=== PATIENT | male | born 1945 | race Caucasian/White ===

== ENCOUNTER 2017-10-18 10:14 | Emergency (ER) | payer MEDICARE ==
[~2017-10-18 10:14] MED LIST: ACE325 PO; ALL100 PO; ALLO100T70 PO; AMOX-559 PO; ASP325 PO; ASPI-1471 PO; ASPI-715 PO; ASPI81TA15 PO; ATOR10TA65 PO; AZIT-9 PO; BACDS PO; CALC-703 PO; CEP500 PO; CEPH-13 PO; CIP500 PO; CIPR-212 PO; DOC100 PO; DUONEB INH; FES4PT PO; IBU600 PO; INDO-1 PO; INDO50CA92 PO; LEV500 PO; LOR5 PO; MELO-207 PO; MULT-1335 PO; MULT1TAB64 PO; MUPI15CR10 TP; NEOM14OI TP; NEOPT TOP; NIT100 PO; OXYB10TA21 PO; OXYC-865 PO; OXYC1TAB54 PO; PAN40 PO; PER PO; PHENA200 PO; PRED-314 PO; SULF-198 PO; TAM4 PO; TIZA-1 PO; TOLT4CAP13 PO; UNRESPONSIVE; URI PO; VITA-324 PO; ZOLP-350 PO; [UNRECOGNIZED DRUG - CODE] PO
--- NOTE | 2017-10-18 10:29 | ER Report ---
History and Physical Time Seen By MD: 10:20 Hx. of Stated Complaint: GOAT STOMPED ON RIGHT FOOT ON FRIDAY OR FRIDAY HPI/ROS Goat steppef on his right second toe. Now with pain and blood under toenail. ABle to ambulate. No pain in foot. Allergies: Coded Allergies: levofloxacin (Unverified Allergy, Severe, JOINT PAINS, 10/18/17) hyoscyamine (Verified Allergy, Intermediate, 10/18/17) procaine (Verified Allergy, Intermediate, 10/18/17) Home Meds Reported Medications Aspirin (ASPIR 81) 81 Mg Tablet.dr, 1 TAB PO QDAY, TAB 04/04/14 Reviewed Nurses Notes: Yes Old Medical Records Reviewed: Yes Hx Smoking: No Smoking Status: Never Smoker Hx Substance Use Disorder: No Hx Alcohol Use: No Constitutional Physical Exam GE: Alert and oriented HEENT: PERRL, EOMI CV: RRR no m/r/g Lungs: cta b/l EX: subungual hematoma under second toenail of right foot. Medical Decision Making EKG/Imaging Imaging xray: no fractures/dislocations of right foot/toes ED Course/Re-evaluation ED Course Used Bovie pen to place hole in toenail of second toe of right foot. Blood expelled. Pain improved. No fractures or dislocations of foot/toe Decision to Disposition Date: Oct 18, 2017 Decision to Disposition Time: 11:45 Depart Departure Latest Vital Signs Impression: Primary Impression: Subungual hematoma of second toe of right foot Condition: Improved Patient Instructions: Subungual Hematoma (ED) Problem Qualifiers Primary Impression: Subungual hematoma of second toe of right foot Encounter type: initial encounter Qualified Codes: S90.221A - Contusion of right lesser toe(s) with damage to nail, initial encounter VISHNU LOUIS MD Oct 18, 2017 10:29
--- NOTE | 2017-10-18 10:53 | RADIOLOGY IMAGING REPORT ---
FACILITY: [facility] - [place] PATIENT NAME: Scar Alexandra : 1945 MR: [id number] V: [id number] EXAM DATE: ORDERING PHYSICIAN: VISHNU LOUIS TECHNOLOGIST: Location: [facility] - [place] Patient: Scar Alexandra : 1945 Visit/Account:[id number] Date of Sevice: 10/18/2017 FOOT 2 VIEW RIGHT Indication: Right foot pain near the first toe after goat stepped on foot. Comparison: None Available Findings: AP and lateral views of the right foot were obtained. No acute fracture or dislocation. No bony lesions or past abnormality. There are some prominent subch ondral cystic changes along the distal medial first metatarsal without erosions or periosteal abnorma lity. No significant degenerative changes are otherwise seen. There is mild hallux valgus deformity p resent. Soft tissues show mild edema without radiopaque foreign body. IMPRESSION: 1.No acute osseous abnormality of the right foot 2. Prominent subchondral cystic changes in the first metatarsal head this could be secondary to early changes of osteoarthritis or gout. 3. Mild hallux valgus deformity. Report Dictated By: Zackery Troy at 10/18/2017 10:44 AM Report E-Signed By: Zackery Troy at 10/18/2017 10:48 AM WSN:[id number]
[2017-10-18 11:48] VITALS: BP 127/80
== END 2017-10-18 11:52 | disposition home or self-care (01) ==
LOC: ER 10:20
DX: S90.221A Contusion of right lesser toe(s) with damage to nail, initial encounter (principal)
CPT/HCPCS: 99282

== ENCOUNTER 2018-01-30 15:22 | Observation (INO) | payer MEDICARE ==
[~2018-01-30] VITALS: Ht 167.6 cm; Wt 81.8 kg
[2018-01-30] VITALS (7 sets, daily range): BP systolic 132–150; BP diastolic 78–100
[~2018-01-30 15:22] MED LIST changes: +INDO-21 PO
[2018-01-30] MEDS ORDERED: IBUP-136 PO (15:38)
[2018-01-30] MEDS ORDERED: LIDOCAINE 2% 200MG/10ML UROJET ONE (15:55)
--- NOTE | 2018-01-30 15:56 | ER Report ---
History and Physical Time Seen By MD: 15:40 Hx. of Stated Complaint: DIFFICULTY URINATING SINCE 0400 TODAY. HPI/ROS CHIEF COMPLAINT: urinary retention HISTORY OF PRESENT ILLNESS: Pt has solitary R kidney since age 11, complains of urinary retention since 4am, has not had this in years, since urethral procedure 7-8 yrs ago. Notes dysuria when he urinates today, abd pain L > R, lightheaded, nausea, sensation of fever. No change in color/odor. No bloodyblack stool. Had not had increased urination recently. No prostate problems that he knows about. REVIEW OF SYSTEMS: Constitutional: chills today Eyes: No discharge. ENT: No sore throat. Cardiovascular: No chest pain, no palpitations. Respiratory: No cough, no shortness of breath. Gastrointestinal: abd pain suprapubic and left Genitourinary: as above Musculoskeletal: No back pain. Skin: No rashes. Neurological: No headache. Remainder of the 14 system rev: Yes Allergies: Coded Allergies: levofloxacin (Unverified Allergy, Severe, JOINT PAINS, 01/30/18) hyoscyamine (Verified Allergy, Intermediate, 01/30/18) procaine (Verified Allergy, Intermediate, 01/30/18) Home Meds Reported Medications Ibuprofen (IBUPROFEN) 200 Mg Capsule, 2 CAP PO HS, CAPSULE 01/30/18 Aspirin (ASPIR 81) 81 Mg Tablet.dr, 1 TAB PO QDAY, TAB 04/04/14 Hx Smoking: No Smoking Status: Never Smoker Hx Substance Use Disorder: No Hx Alcohol Use: No Constitutional Vital Sign - Last 24 Hours 01/30/18 01/30/18 01/30/18 01/30/18 15:27 15:31 15:58 16:00 Temp 98.3 Pulse 107 Resp 16 B/P (MAP) 151/105 151/105 (120) 152/86 (108) 156/99 (118) Pulse Ox 97 95 O2 Delivery Room Air 01/30/18 01/30/18 16:15 16:30 Pulse 83 100 B/P (MAP) 164/117 (133) Pulse Ox 97 93 Physical Exam General Appearance: [The patient is alert, has no immediate need for airway protection and no signs of toxicity.] Eyes: Pupils equal and round no pallor or injection. ENT, Mouth: Mucous membranes are moist. Respiratory: There are no retractions, lungs are clear to auscultation. Cardiovascular: Regular rate and rhythm. Gastrointestinal: Abdomen mild suprapubic distension, llq, l lateral ttp Neurological: alert, oriented, nad Skin: Warm and dry, no rashes. Musculoskeletal: Neck is supple non tender. bilat le edema, l slightly greater than right, no ttp Rectal - significant prostate hypertrophy, no nodules palpated. Discomfort throughout prostate, no fluctuance DIFFERENTIAL DIAGNOSIS: After history and physical exam differential diagnosis was considered for urinary retention, prostate hypertrophy/mass, uti/pyelo, renal failure, vte, or other emergent etiology Medical Decision Making Data Points Result Diagram: 01/30/18 1615 01/30/18 1615 Laboratory Hematology Test 01/30/18 16:15 Red Blood Count 5.33 M/uL (4.00-5.60) Mean Corpuscular Volume 83.7 fL (80.0-96.0) Mean Corpuscular Hemoglobin 29.4 pg (26.0-33.0) Mean Corpuscular Hemoglobin Concent 35.1 g/dL (32.0-36.0) Red Cell Distribution Width 12.9 % (11.5-14.5) Mean Platelet Volume 8.2 fL (7.2-11.1) Neutrophils (%) (Auto) 73.6 % (39.4-72.5) Lymphocytes (%) (Auto) 18.8 % (17.6-49.6) Monocytes (%) (Auto) 6.6 % (4.1-12.4) Eosinophils (%) (Auto) 0.4 % (0.4-6.7) Basophils (%) (Auto) 0.6 % (0.3-1.4) Nucleated RBC Relative Count (auto) 0.0 /100WBC Neutrophils # (Auto) 8.3 K/uL (2.0-7.4) Lymphocytes # (Auto) 2.1 K/uL (1.3-3.6) Monocytes # (Auto) 0.7 K/uL (0.3-1.0) Eosinophils # (Auto) 0.0 K/uL (0.0-0.5) Basophils # (Auto) 0.1 K/uL (0.0-0.1) Nucleated RBC Absolute Count (auto) 0.00 K/uL Sodium Level 143 mmol/L (137-145) Potassium Level 4.0 mmol/L (3.5-5.0) Chloride Level 107 mmol/L (98-107) Carbon Dioxide Level 21 mmol/L (22-30) Blood Urea Nitrogen 17 mg/dl (9-21) Creatinine 1.40 mg/dl (0.66-1.25) Glomerular Filtration Rate Calc 50.1 Random Glucose 91 mg/dl (75-110) Calcium Level 10.0 mg/dl (8.4-10.2) Total Bilirubin 1.0 mg/dl (0.2-1.3) Aspartate Amino Transf (AST/SGOT) 33 U/L (0-35) Alanine Aminotransferase (ALT/SGPT) 24 U/L (0-56) Alkaline Phosphatase 90 U/L (0-126) Total Protein 8.2 g/dl (6.3-8.2) Albumin 4.6 g/dl (3.5-5.0) Chemistry Test 01/30/18 16:15 White Blood Count 11.3 k/uL (4.5-11.0) Red Blood Count 5.33 M/uL (4.00-5.60) Hemoglobin 15.7 g/dL (14.0-18.0) Hematocrit 44.6 % (42.0-52.0) Mean Corpuscular Volume 83.7 fL (80.0-96.0) Mean Corpuscular Hemoglobin 29.4 pg (26.0-33.0) Mean Corpuscular Hemoglobin Concent 35.1 g/dL (32.0-36.0) Red Cell Distribution Width 12.9 % (11.5-14.5) Platelet Count 305 K/uL (150-450) Mean Platelet Volume 8.2 fL (7.2-11.1) Neutrophils (%) (Auto) 73.6 % (39.4-72.5) Lymphocytes (%) (Auto) 18.8 % (17.6-49.6) Monocytes (%) (Auto) 6.6 % (4.1-12.4) Eosinophils (%) (Auto) 0.4 % (0.4-6.7) Basophils (%) (Auto) 0.6 % (0.3-1.4) Nucleated RBC Relative Count (auto) 0.0 /100WBC Neutrophils # (Auto) 8.3 K/uL (2.0-7.4) Lymphocytes # (Auto) 2.1 K/uL (1.3-3.6) Monocytes # (Auto) 0.7 K/uL (0.3-1.0) Eosinophils # (Auto) 0.0 K/uL (0.0-0.5) Basophils # (Auto) 0.1 K/uL (0.0-0.1) Nucleated RBC Absolute Count (auto) 0.00 K/uL Glomerular Filtration Rate Calc 50.1 Calcium Level 10.0 mg/dl (8.4-10.2) Total Bilirubin 1.0 mg/dl (0.2-1.3) Aspartate Amino Transf (AST/SGOT) 33 U/L (0-35) Alanine Aminotransferase (ALT/SGPT) 24 U/L (0-56) Alkaline Phosphatase 90 U/L (0-126) Total Protein 8.2 g/dl (6.3-8.2) Albumin 4.6 g/dl (3.5-5.0) ED Course/Re-evaluation ED Course Pt presents with acute urinary retention; eval to r/o matthias; exam c/w sig prostate hypertrophy; unable to pass sierra or coudet; valium administrated and will attempt coudet again Unable to pass coudet; I consulted urology; Dr. Kruger present and attempts at bedside. Unable to pass coudet; will admit and take to OR.. Decision to Disposition Date: Jan 30, 2018 Decision to Disposition Time: 18:02 Depart Departure Latest Vital Signs Vital Signs Date Time Temp Pulse Resp B/P (MAP) Pulse Ox O2 Delivery O2 Flow Rate FiO2 01/30/18 16:30 100 164/117 (133) 93 01/30/18 15:27 98.3 16 Room Air Impression: Primary Impression: Urinary obstruction Additional Impression: Prostate hypertrophy Problem Qualifiers CHUY LOUIS MD Jan 30, 2018 15:56
[2018-01-30] MEDS ORDERED: DIAZEPAM 50 MG/10 ML MDV IVP ONE ×2 (16:10→17:35)
[2018-01-30 16:32] LABS: PLATELET COUNT, AUTOMATED 305 K/uL (150-450)
[2018-01-30] MEDS ORDERED: GENTAMICIN/NS 80 MG/100 ML PB 100 ML IVPB ONE (18:05)
[2018-01-30] MEDS ORDERED: cefTRIAXone(*) 2 GM VIAL 2 GM in NS(*) 0.9% 100 ML ADDVANT BAG 100 ML IVPB ONE (18:05)
[2018-01-30] MEDS ORDERED: FAMOTIDINE(*) 20MG/50ML PREMIX 50 ML IVPB ONE (18:05)
[2018-01-30] MEDS ORDERED: LR(*) 1000 ML BAG 1,000 ML VA ONE (18:15)
--- NOTE | 2018-01-30 18:27 | EKG ---
FACILITY: [facility] PATIENT NAME: NATALY HANLEY : [id number] MR: [id number] V: [id number] EXAM DATE: ORDERING PHYSICIAN: LUKAS WALTERS TECHNOLOGIST: Test Reason : Blood Pressure : / mmHG Vent. Rate : 071 BPM Atrial Rate : 071 BPM P-R Int : 166 ms QRS Dur : 084 ms QT Int : 396 ms P-R-T Axes : 045 018 026 degrees QTc Int : 430 ms Normal sinus rhythm with sinus arrhythmia Normal ECG When compared with ECG of 16-JAN-2016 10:47, No significant change was found Confirmed by Dennys Dumont ([id number]) on 01/30/2018 10:48:47 PM Referred By: Confirmed By:Dennys Treadwell
[2018-01-30] MEDS ORDERED: MIDAZOLAM 2 MG/2 ML VIAL ONE (18:36)
[2018-01-30] MEDS ORDERED: HYDROCORTISONE 1% CR 28.35 GM TP ONE (19:07)
[2018-01-30] MEDS ORDERED: BELLADONNA ALK/OPIUM 60MG SUPP PR PRN (20:10)
[2018-01-30] MEDS ORDERED: LR(*) 1000 ML BAG 1,000 ML IV PRN (20:10)
[2018-01-30] MEDS ORDERED: NALOXONE HCL 0.4 MG/ML VIAL IVP PRN (20:10)
[2018-01-30] MEDS ORDERED: ONDANSETRON 4 MG/2 ML VIAL IVP PRN (20:10)
[2018-01-30] MEDS ORDERED: GLYCOPYRROLATE 0.2MG/ML 1 ML INJ IVP PRN (20:10)
[2018-01-30] MEDS ORDERED: PROPANTHELINE BROMIDE 15MG TAB PO PRN (20:10)
[2018-01-30] MEDS ORDERED: ZOLPIDEM TARTRATE 5 MG TAB PO PRN (20:10)
[2018-01-30] MEDS ORDERED: FLUSH 10 ML SYR IVP PRN (20:10)
[2018-01-30] MEDS ORDERED: HYDROmorphone PCA 6 MG/30 ML IV PRN (20:10)
[2018-01-30] MEDS ORDERED: GENTAMICIN(*) 80 MG/2 ML VIAL 160 MG in NS(*) 0.9% 100 ML BAG 100 ML IVPB ONE (20:30)
[2018-01-30] MEDS ORDERED: NORMOSOL R SOLN(*) 1000 ML BAG 1,000 ML IV ONE (20:55)
[2018-01-30] MEDS: BENZALKONIUM CL 1:750 TOP SOLN TP SCH (21:00)
[2018-01-30] MEDS: NEOMYCIN/POLYMYX/BACITR OINT 1 PACKET TP SCH (22:08)
[2018-01-30] MEDS: FAMOTIDINE 20 MG TAB PO SCH (22:08)
[2018-01-30] MEDS: DOCUSATE SODIUM 100 MG CAP PO SCH (22:08)
[2018-01-31] VITALS (9 sets, daily range): BP systolic 118–160; BP diastolic 71–90; Ht 167.6 cm; Wt 81.8 kg
[2018-01-31] MEDS ORDERED: GENTAMICIN/NS 80 MG/100 ML PB 100 ML IVPB SCH (07:30)
[2018-01-31] MEDS: BENZALKONIUM CL 1:750 TOP SOLN TP SCH (08:16)
[2018-01-31] MEDS: FAMOTIDINE 20 MG TAB PO SCH (08:16)
[2018-01-31] MEDS: NEOMYCIN/POLYMYX/BACITR OINT 1 PACKET TP SCH (08:16)
[2018-01-31] MEDS: DOCUSATE SODIUM 100 MG CAP PO SCH (08:16)
[2018-01-31] MEDS ORDERED: ACET-3017 PO (11:05)
[2018-01-31] MEDS ORDERED: FAMO20TA28 PO (11:06)
[2018-01-31] MEDS ORDERED: CIPR-214 PO (11:06)
--- NOTE | 2018-01-31 13:10 | CONSULTATION ---
EVENT DATE: January 30, 2018 ATTENDING PHYSICIAN Ranjeet Fuentes M.D./Emergency Room CONSULTING PHYSICIAN Scotty Kruger M.D. REASON FOR CONSULTATION This is a 72-year-old white male whom I was asked to see in the emergency room emergently with a complaint of painful urination with urinary retention. Dr. Fuentes contacted me to consult for cath replacement. Dr. Fuentes tried his means of catheterization but was unsuccessful. Historically, the patient has had two procedures on the urethra for urethral strictures. The patient is status postop urethroplasty with a buccal graft by Dr. Delaney approximately three years ago. The patient has done relatively well since that time. However, over the past three weeks the patient has noted painful difficult dribbling urination. The patient comes in with inability to urinate except for a few drops intermittently with associated severe bladder pain and spasms most likely. No history of chills or fever. White count is 11.3. After consulting with Dr. Fuentes, he thought he was probably in the prostatic urethra. Considering that information, I thought attempted catheterization in the emergency room was reasonable. At no time did patient have any bleeding per urethra from the repeated instrumentation in the emergency room and by me. An attempt to place a coude tipped catheter, it was my clinical impression that he had a good prostatic urethra and would not fall into the bladder. The patient was so advised and I discontinued the procedure. It was my clinical opinion that the cath had folded up in the urethra. The patient was attempted to urinate by almost jumping out of bed with severe pain and dribbling with urination into a urinal. At one room visit, the patient appeared to be almost passing out from the pain and the small amount of Valium that he had received IV. The patient was repositioned in bed and stabilized satisfactorily. Thus, the hospital nursing electronics production supervisor was contacted. She was on the phone. I waited approximately ten minutes without interruption and then requested that I speak to her and put the phone on hold. I requested on-call crew to be contacted for further evaluation and therapy of Mr. Byrd' inability to urinate satisfactorily with urinary retention. Bladder scan showed 500+ mL urine in the bladder. The patient was agreeable to further evaluation and therapy under anesthesia. This will be accomplished fairly shortly. Thank you for letting me share in the care of your patient. SARBJIT
--- NOTE | 2018-01-31 13:49 | OPERATIVE REPORT 1 ---
EVENT DATE: January 30, 2018 SURGEON: Scotty Kruger MD ANESTHESIOLOGIST: Case Kaufman MD ANESTHESIA: Subarachnoid block. PREOPERATIVE DIAGNOSES 1. Painful urination. 2. Urinary retention. POSTOPERATIVE DIAGNOSES 1. Painful urination. 2. Urinary retention. PROCEDURES PERFORMED 1. Cystourethroscopy. 2. 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 3. Placement of urethral Mc. DESCRIPTION OF PROCEDURE Under subarachnoid block anesthesia, patient was prepped and draped in the extended lithotomy position. The 17 panendoscope admitted through the urethra down to the very narrow severe stricture in the proximal bulbous urethra. The stricture was pinpoint. Pictures were obtained. Filiform passed easily through the pinpoint opening and was dilated from 16- to 20-Malay with relative ease. Following the dilation with filiforms and followers, cystourethroscopy was performed. The urethra was normal down to the proximal bulbous urethral stricture. The stricture was wide open at that point, showed minimal tearing of the tissue and bleeding. The 17 panendoscope admitted easily through the stricture approximately 1/2 inch long. Prostate showed trilobar hyperplasia with obstruction, approximately 30 gram prostate gland with a medium bar. Bladder showed 4+ trabeculation. Bladder was drained. Approximately 700 mL was drained. Urine was relatively clear. There was a small amount of whitish sediment at conclusion of the drainage. A #16 coude-tipped catheter passed easily into the bladder and was put to gravity drainage. Hydrocortisone cream was placed into the urethra part before catheter placement. Patient tolerated the procedure satisfactorily and returned to the recovery room in satisfactory condition. This is a 72-year-old white male complaining of severe painful urination the day of admission. Patient historically had had approximately a three-week history of intermittent relatively painful urination with associated dribbling. Patient is status post op buccal urethroplasty by Dr. Del Rosario a few years ago. Patient had several "Roto Rooter" procedures prior to the urethroplasty. Patient did relatively well following the urethroplasty and has not required any close followup for two to three years. Patient stated he was voiding to his satisfaction prior to the onset of his difficulties approximately three weeks ago. 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 Patient has a solitary kidney that is healthy and working normally. Patient will be admitted overnight for observation secondary to multiple manipulations, antibiotic therapy, and awaiting results on the culture. Plan probable discharge in the a.m. He is to force fluids 2 L per day. Activities are as tolerated. He is to remove his urethral Mc as instructed. We filled his leg bag prior to discharge and sent him home with a bedside drainage bag. He is to follow up in the office on Friday. Patient will probably follow up with Dr. Del Rosario following that visit. Patient will be discharged home on Cipro, Pepcid, and Tylenol #3 therapy. MTDD
[2018-01-31] MEDS ORDERED: cefTRIAXone(*) 1 GM VIAL 1 GM in NS(*) 0.9% 100 ML ADDVANT BAG 100 ML IVP SCH (18:00)
== END 2018-01-31 11:14 | disposition home or self-care (01) ==
LOC: ER 15:50 → OR 17:59 → MED 21:40
DX: N13.9 Obstructive and reflux uropathy, unspecified (principal); N40.0 Benign prostatic hyperplasia without lower urinary tract symptoms; Z86.73 Personal history of transient ischemic attack (TIA), and cerebral infarction without residual deficits
CPT/HCPCS: 36415; 52281; 81001; 85025; 87088; 93005; 96365; 96375; 96376; 99284; A9270; G0378; J0696; J1580; J2250; J3360; J3490; J7050; J7120; 82040; 82247; 82310; 82374; 82435; 82565; 82947; 84075; 84132; 84155; 84295; 84450; 84460; 84520

== ENCOUNTER 2018-05-30 09:23 | Emergency (ER) | payer MEDICARE ==
[2018-01-31 11:17] VITALS: Wt 83.9 kg
[~2018-05-30 09:23] MED LIST changes: +ACET-3017 PO; +CIPR-214 PO; +FAMO20TA28 PO; +IBUP-136 PO
--- NOTE | 2018-05-30 09:25 | ER Report ---
History and Physical Time Seen By MD: 09:26 HPI/ROS CHIEF COMPLAINT: Left hand and wrist pain HISTORY OF PRESENT ILLNESS: Patient is a 72-year-old male who presents to the emergency department for evaluation of left 5th finger, left hand left wrist and left shoulder pain status post fall that occurred this past Friday evening. Patient states that he was outside working on near his porch. Dates that he had turned and tripped over a cat and fell onto his left outstretched hand. Patient states he was sore and tried symptomatic relief at home. However over the last few days he's noticed increased swelling and redness he has difficulty bending the 5th digit is also noticed some redness to the 5th digit to the lateral aspect of the hand extending somewhat up into the forearm. Patient is unsure of his last tetanus but thinks it is doubling over 5 years ago. Patient is right- hand dominant and lives by himself. REVIEW OF SYSTEMS: Constitutional: Negative for fever Respiratory: No cough, no dyspnea. Cardiovascular: No chest pain, no palpitations. Gastrointestinal: No vomiting, no abdominal pain. Musculoskeletal: No back pain. Left finger, hand, wrist and shoulder pain. Allergies: Coded Allergies: levofloxacin (Unverified Allergy, Severe, JOINT PAINS, 05/30/18) hyoscyamine (Verified Allergy, Intermediate, 05/30/18) procaine (Verified Allergy, Intermediate, 05/30/18) Home Meds Active Scripts Cephalexin 500 Mg Tab (KEFLEX 500 MG TAB) 500 Mg Tablet, 500 MG PO Q6H, #28 TAB 0 Refills TAKE ONE TABLET BY MOUTH EVERY SIX HOURS Prov:CHUY REA MD 05/30/18 Oxycodone Hcl/Acetaminophen (PERCOCET 5-325 MG TABLET) 1 Each Tablet, 1 EACH PO Q4H for PAIN, #12 TAB 0 Refills Prov:CHUY REA MD 05/30/18 Reported Medications Aspirin (ASPIR 81) 81 Mg Tablet.dr, 1 TAB PO QDAY, TAB 04/04/14 Discontinued Reported Medications Ciprofloxacin 500 Mg Tab (CIPROFLOXACIN 500 MG TAB) 500 Mg Tablet, 500 MG PO BID, #20 TAB 0 Refills 01/31/18 Famotidine (PEPCID) 20 Mg Tablet, 20 MG PO BID, #20 TAB 0 Refills 01/31/18 Acetaminophen With Codeine # 3 (TYLENOL WITH CODEINE #3 TABLET) 1 Each Tablet, 1 TAB PO Q6H PRN for PAIN, #20 TAB 0 Refills 01/31/18 Ibuprofen (IBUPROFEN) 200 Mg Capsule, 2 CAP PO HS, CAPSULE 01/30/18 Past Medical/Surgical History Past medical history for gout, hypercholesterolemia Hx Smoking: No Smoking Status: Never Smoker Exposure to Second Hand Smoke?: No Hx Substance Use Disorder: No Hx Alcohol Use: No Constitutional Vital Sign - Last 24 Hours 05/30/18 05/30/18 05/30/18 05/30/18 09:23 09:30 09:33 09:45 Temp 98.7 Pulse 85 92 Resp 12 B/P (MAP) 137/102 (114) 137/102 108/87 (94) Pulse Ox 88 97 O2 Delivery Room Air 05/30/18 05/30/18 05/30/18 05/30/18 09:53 10:00 10:23 10:28 Pulse 88 83 76 B/P (MAP) 123/74 (90) Pulse Ox 87 90 91 05/30/18 05/30/18 05/30/18 05/30/18 10:58 11:00 11:28 11:33 Pulse 73 72 72 Resp 14 20 19 B/P (MAP) 120/70 (87) Pulse Ox 94 91 90 05/30/18 11:42 B/P (MAP) 122/80 (94) Physical Exam General Appearance: The patient is alert, has no immediate need for airway protection and no current signs of toxicity. Eyes: Pupils equal and round no injection. Respiratory: Chest is non tender, lungs are clear to auscultation. Cardiac: regular rate and rhythm [ ] Gastrointestinal: Abdomen is soft and non tender, no masses, bowel sounds normal. Musculoskeletal: Neck: Neck is supple and non tender. Extremities: Examination of the left upper extremity reveals swelling to the dorsum of the hand along with some erythema specifically on the ulnar aspect. The 5th finger is bent in a flexed posture and has pain with extension. There is also erythema that extends approximately one quarter up the ulnar aspect of the forearm.Examination of the Left hand reveals swelling to the back of the hand. the patient is able to give a thumbs up sign, is able to make an okay sign, and is able to AB duct the fingers. Sensation is intact over the dorsal 1st web space, the volar aspect of the 2nd finger, and the volar aspect of the 5th finger. Capillary refill is brisk. Medical Decision Making Data Points Result Diagram: 05/30/18 1023 05/30/18 1023 Laboratory Hematology Test 05/30/18 10:23 Red Blood Count 5.22 M/uL (4.00-5.60) Mean Corpuscular Volume 88.3 fL (80.0-96.0) Mean Corpuscular Hemoglobin 30.1 pg (26.0-33.0) Mean Corpuscular Hemoglobin Concent 34.1 g/dL (32.0-36.0) Red Cell Distribution Width 13.3 % (11.5-14.5) Mean Platelet Volume 7.8 fL (7.2-11.1) Neutrophils (%) (Auto) 67.4 % (39.4-72.5) Lymphocytes (%) (Auto) 18.7 % (17.6-49.6) Monocytes (%) (Auto) 11.7 % (4.1-12.4) Eosinophils (%) (Auto) 1.4 % (0.4-6.7) Basophils (%) (Auto) 0.8 % (0.3-1.4) Nucleated RBC Relative Count (auto) 0.0 /100WBC Neutrophils # (Auto) 7.1 K/uL (2.0-7.4) Lymphocytes # (Auto) 2.0 K/uL (1.3-3.6) Monocytes # (Auto) 1.2 K/uL (0.3-1.0) Eosinophils # (Auto) 0.1 K/uL (0.0-0.5) Basophils # (Auto) 0.1 K/uL (0.0-0.1) Nucleated RBC Absolute Count (auto) 0.00 K/uL Peripheral Blood Smear No Y/N Erythrocyte Sedimentation Rate 32 mm/HOUR (0-20) Sodium Level 138 mmol/L (137-145) Potassium Level 4.3 mmol/L (3.5-5.0) Chloride Level 105 mmol/L (98-107) Carbon Dioxide Level 24 mmol/L (22-30) Blood Urea Nitrogen 19 mg/dl (9-21) Creatinine 1.40 mg/dl (0.66-1.25) Glomerular Filtration Rate Calc 50.1 Random Glucose 87 mg/dl (75-110) Lactate 0.9 mmol/L (0.7-2.1) Calcium Level 9.3 mg/dl (8.4-10.2) Total Bilirubin 0.8 mg/dl (0.2-1.3) Aspartate Amino Transf (AST/SGOT) 30 U/L (0-35) Alanine Aminotransferase (ALT/SGPT) 32 U/L (0-56) Alkaline Phosphatase 75 U/L (0-126) C-Reactive Protein 4.2 mg/dl (<1.0) Total Protein 7.8 g/dl (6.3-8.2) Albumin 4.0 g/dl (3.5-5.0) Chemistry Test 05/30/18 10:23 White Blood Count 10.5 k/uL (4.5-11.0) Red Blood Count 5.22 M/uL (4.00-5.60) Hemoglobin 15.7 g/dL (14.0-18.0) Hematocrit 46.1 % (42.0-52.0) Mean Corpuscular Volume 88.3 fL (80.0-96.0) Mean Corpuscular Hemoglobin 30.1 pg (26.0-33.0) Mean Corpuscular Hemoglobin Concent 34.1 g/dL (32.0-36.0) Red Cell Distribution Width 13.3 % (11.5-14.5) Platelet Count 254 K/uL (150-450) Mean Platelet Volume 7.8 fL (7.2-11.1) Neutrophils (%) (Auto) 67.4 % (39.4-72.5) Lymphocytes (%) (Auto) 18.7 % (17.6-49.6) Monocytes (%) (Auto) 11.7 % (4.1-12.4) Eosinophils (%) (Auto) 1.4 % (0.4-6.7) Basophils (%) (Auto) 0.8 % (0.3-1.4) Nucleated RBC Relative Count (auto) 0.0 /100WBC Neutrophils # (Auto) 7.1 K/uL (2.0-7.4) Lymphocytes # (Auto) 2.0 K/uL (1.3-3.6) Monocytes # (Auto) 1.2 K/uL (0.3-1.0) Eosinophils # (Auto) 0.1 K/uL (0.0-0.5) Basophils # (Auto) 0.1 K/uL (0.0-0.1) Nucleated RBC Absolute Count (auto) 0.00 K/uL Peripheral Blood Smear No Y/N Erythrocyte Sedimentation Rate 32 mm/HOUR (0-20) Glomerular Filtration Rate Calc 50.1 Lactate 0.9 mmol/L (0.7-2.1) Calcium Level 9.3 mg/dl (8.4-10.2) Total Bilirubin 0.8 mg/dl (0.2-1.3) Aspartate Amino Transf (AST/SGOT) 30 U/L (0-35) Alanine Aminotransferase (ALT/SGPT) 32 U/L (0-56) Alkaline Phosphatase 75 U/L (0-126) C-Reactive Protein 4.2 mg/dl (<1.0) Total Protein 7.8 g/dl (6.3-8.2) Albumin 4.0 g/dl (3.5-5.0) EKG/Imaging Imaging FACILITY: [facility] [place] PATIENT NAME: Scar Alexandra : 1945 MR: [id number] V: [id number] EXAM DATE: ORDERING PHYSICIAN: CHUY REA TECHNOLOGIST: Location: [facility] Patient: Scar Alexandra : 1945 Visit/Account:[id number] Date of Sevice: 05/30/2018 Exam type: 3 views left shoulder History: Fall Comparison: None. Findings: There is no acute fracture or dislocation of the left shoulder. Degenerative ch anges are noted the AC joint and the acromion. Left lung apex is unremarkable. IMPRESSION: 1. No acute fracture or dislocation of the left shoulder. Report Dictated By: Zackery Reardon MD at 05/30/2018 11:11 AM Report E-Signed By: Zackery Reardon MD at 05/30/2018 11:12 AM WSN:[id number] FACILITY: [facility] [place] PATIENT NAME: Scar Alexandra : 1945 MR: [id number] V: [id number] EXAM DATE: ORDERING PHYSICIAN: CHUY REA TECHNOLOGIST: Location: [facility] Patient: Scar Alexandra : 1945 Visit/Account:[id number] Date of Sevice: 05/30/2018 Exam type: 4 views left hand, 4 views left wrist History: fall Comparison: 06/20/2014. Findings: There is significant soft tissue swelling around the hand. The lateral view of the hand demonstrates a possible subtle nondisplaced fracture of the base of the 3rd metacarpal. This finding is not seen on the views of the wrist. Please correlate with site of pain. Otherwise there are old healed fractures of the distal left radius and ulnar s tyloid process. Significant changes of osteoarthritis are noted in the carpus with deep cystic changes in the capitate and scaphoid. Soft tissue swelling of the digits is noted. There is osteoarthritis of the digits as well. IMPRESSION: 1. Possible subtle fracture of the base of the 3rd metacarpal. Please correlate with site of pain. 2. Significant soft tissue swelling about the hand. 3. Old healed fractures of the distal left radius and ulna. 4. Osteoarthritis of the carpus. Report Dictated By: Zackery Reardon MD at 05/30/2018 11:12 AM Report E-Signed By: Zackery Reardon MD at 05/30/2018 11:19 AM WSN:[id number] FACILITY: [facility] [place] PATIENT NAME: Scar Alexandra : 1945 MR: [id number] V: [id number] EXAM DATE: [id number] ORDERING PHYSICIAN: CHUY REA TECHNOLOGIST: Location: [facility] Patient: Scar Alexandra : 1945 Visit/Account:[id number] Date of Sevice: 05/30/2018 Exam type: 4 views left hand, 4 views left wrist History: fall Comparison: 06/20/2014. Findings: There is significant soft tissue swelling around the hand. The lateral view of the hand demonstrates a possible subtle nondisplaced fracture of the base of the 3rd metacarpal. This finding is not seen on the views of the wrist. Please correlate with site of pain. Otherwise there are old healed fractures of the distal left radius and ulnar styloid process. Significant changes of osteoarthritis are noted in the carpus with deep cystic changes in the capitate and scaphoid. Soft tissue swelling of the digits is noted. There is osteoarthritis of the digits as well. IMPRESSION: 1. Possible subtle fracture of the base of the 3rd metacarpal. Please correlate with site of pain. 2. Significant soft tissue swelling about the hand. 3. Old healed fractures of the distal left radius and ulna. 4. Osteoarthritis of the carpus. Report Dictated By: Zackery Reardon MD at 05/30/2018 11:12 AM Report E-Signed By: Zackery Reardon MD at 05/30/2018 11:19 AM WSN:[id number] ED Course/Re-evaluation ED Course 05/30/2018 10:06:00 am plan this time will be to perform x-ray imaging of the left 5th finger, hand, wrist as well as shoulder. Uncertain about overlying cellulitis. We will give a tetanus injection as well as start the patient on IV Rocephin. We'll check CBC CMP C-reactive protein and sedimentation rate. Give IV Toradol for pain 05/30/2018 11:44:18 am clinically patient is doing well normal white blood cell count slight elevation in CRP otherwise unremarkable. X-ray demonstrates possible subtle fracture to the base of the 3rd metacarpal carpal also demo nstrates old radial ulnar fractures that are healing well. Plan at this time will be to treat the patient for cellulitis. A skin pen was used to make a mehreen of the erythema. We will place the patient on oral antibiotics and have him follow-up here in approximately 24 hours. He was given instructions to return sooner if he feels worse, if the redness significantly spreads above the pen mehreen or if he develops fever at any time. Patient had no questions or concerns at this time. We will place the patient in a volar splint and he will be referred to orthopedics. Decision to Disposition Date: May 30, 2018 Decision to Disposition Time: 11:50 Depart Departure Latest Vital Signs Vital Signs Date Time Temp Pulse Resp B/P (MAP) Pulse Ox O2 Delivery O2 Flow Rate FiO2 05/30/18 11:42 122/80 (94) 05/30/18 11:33 72 19 90 05/30/18 09:33 98.7 Room Air Impression: Primary Impression: Fracture of base of third metacarpal bone Additional Impression: Cellulitis Condition: Improved Disposition: HOME OR SELF-CARE New Scripts Cephalexin 500 Mg Tab (KEFLEX 500 MG TAB) 500 Mg Tablet 500 MG PO Q6H, #28 TAB 0 Refills TAKE ONE TABLET BY MOUTH EVERY SIX HOURS Prov: CHUY REA MD 05/30/18 Oxycodone Hcl/Acetaminophen (PERCOCET 5-325 MG TABLET) 1 Each Tablet 1 EACH PO Q4H for PAIN, #12 TAB 0 Refills Prov: CHUY REA MD 05/30/18 Patient Instructions: Cellulitis (ED), Hand Fracture (DC), Splint Care (DC) Additional Instructions: Return to the emergency department in 24 hours for reevaluation of your skin infection to your left hand. If at any time you develop fever, worsening symptoms including pain redness or swelling you should return to the emergency department immediately for further evaluation. Review appear that you could have a fracture to the 3rd metacarpal of your left hand. 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 Take until all of the antibiotics are gone Problem Qualifiers Primary Impression: Fracture of base of third metacarpal bone Encounter type: initial encounter Fracture type: closed Fracture alignment: nondisplaced Laterality: left Qualified Codes: S62.343A - Nondisplaced fracture of base of third metacarpal bone, left hand, initial encounter for closed fracture Additional Impression: Cellulitis Site of cellulitis: extremity Site of cellulitis of extremity: upper extremity Laterality: left Qualified Codes: L03.114 - Cellulitis of left upper limb CHUY REA MD May 30, 2018 09:25
[2018-05-30] MEDS ORDERED: NS(*) 0.9% 500 ML BAG 500 ML IV ONE (09:58)
[2018-05-30] MEDS ORDERED: DIPHTH/TETANUS/ACEL. PERTUSSIS IM ONLY ONE (10:00)
[2018-05-30] MEDS ORDERED: cefTRIAXone 1 GM VIAL IVP ONE (10:00)
[2018-05-30] MEDS ORDERED: KETOROLAC 15 MG/ML VIAL IVP ONE (10:00)
[2018-05-30 10:37] LABS: PLATELET COUNT, AUTOMATED 254 K/uL (150-450)
--- NOTE | 2018-05-30 11:17 | RADIOLOGY IMAGING REPORT ---
FACILITY: [facility] PATIENT NAME: Scar Alexandra : 1945 MR: [id number] V: [id number] EXAM DATE: ORDERING PHYSICIAN: CHUY REA TECHNOLOGIST: Location: [facility] [place] Patient: Scar Alexandra : 1945 Visit/Account:[id number] Date of Sevice: 05/30/2018 Exam type: 3 views left shoulder History: Fall Comparison: None. Findings: There is no acute fracture or dislocation of the left shoulder. Degenerative changes are noted the AC joint and the acromion. Left lung apex is unremarkable. IMPRESSION: 1. No acute fracture or dislocation of the left shoulder. Report Dictated By: Zackery Reardon MD at 05/30/2018 11:11 AM Report E-Signed By: Zackery Reardon MD at 05/30/2018 11:12 AM WSN:[id number]
--- NOTE | 2018-05-30 11:23 | RADIOLOGY IMAGING REPORT ---
FACILITY: [facility] PATIENT NAME: Scar Alexandra : 1945 MR: [id number] V: [id number] EXAM DATE: ORDERING PHYSICIAN: CHUY REA TECHNOLOGIST: Location: [facility] Patient: Scar Alexandra : 1945 Visit/Account:[id number] Date of Sevice: 05/30/2018 Exam type: 4 views left hand, 4 views left wrist History: fall Comparison: 06/20/2014. Findings: There is significant soft tissue swelling around the hand. The lateral view of the hand demonstrates a possible subtle nondisplaced fracture of the base of the 3rd metacarpal. This finding is not seen o n the views of the wrist. Please correlate with site of pain. Otherwise there are old healed fractures of the distal left radius and ulnar styloid process. Signifi cant changes of osteoarthritis are noted in the carpus with deep cystic changes in the capitate and s caphoid. Soft tissue swelling of the digits is noted. There is osteoarthritis of the digits as well. IMPRESSION: 1. Possible subtle fracture of the base of the 3rd metacarpal. Please correlate with site of pain. 2. Significant soft tissue swelling about the hand. 3. Old healed fractures of the distal left radius and ulna. 4. Osteoarthritis of the carpus. Report Dictated By: Zackery Reardon MD at 05/30/2018 11:12 AM Report E-Signed By: Zackery Reardon MD at 05/30/2018 11:19 AM WSN:[id number]
--- NOTE | 2018-05-30 11:23 | RADIOLOGY IMAGING REPORT ---
FACILITY: [facility] PATIENT NAME: Scar Alexandra : 1945 MR: [id number] V: [id number] EXAM DATE: ORDERING PHYSICIAN: CHUY REA TECHNOLOGIST: Location: [facility] Patient: Scar Alexandra : 1945 Visit/Account:[id number] Date of Sevice: 05/30/2018 Exam type: 4 views left hand, 4 views left wrist History: fall Comparison: 06/20/2014. Findings: There is significant soft tissue swelling around the hand. The lateral view of the hand demonstrates a possible subtle nondisplaced fracture of the base of the 3rd metacarpal. This finding is not seen o n the views of the wrist. Please correlate with site of pain. Otherwise there are old healed fractures of the distal left radius and ulnar styloid process. Signifi cant changes of osteoarthritis are noted in the carpus with deep cystic changes in the capitate and s caphoid. Soft tissue swelling of the digits is noted. There is osteoarthritis of the digits as well. IMPRESSION: 1. Possible subtle fracture of the base of the 3rd metacarpal. Please correlate with site of pain. 2. Significant soft tissue swelling about the hand. 3. Old healed fractures of the distal left radius and ulna. 4. Osteoarthritis of the carpus. Report Dictated By: Zackery Reardon MD at 05/30/2018 11:12 AM Report E-Signed By: Zackery Reardon MD at 05/30/2018 11:19 AM WSN:[id number]
[2018-05-30 11:42] VITALS: BP 122/80
[2018-05-30] MEDS ORDERED: OXYC-865 PO (11:46)
[2018-05-30] MEDS ORDERED: CEPH500T7 PO (11:46)
[2018-05-31] MEDS ORDERED: INDO-21 PO (10:26)
== END 2018-05-30 12:09 | disposition home or self-care (01) ==
LOC: ER 09:28
DX: S62.343A Nondisplaced fracture of base of third metacarpal bone, left hand, initial encounter for closed fracture (principal); L03.114 Cellulitis of left upper limb; W01.0XXA Fall on same level from slipping, tripping and stumbling without subsequent striking against object, initial encounter
CPT/HCPCS: 36415; 73030; 73110; 73130; 83605; 85025; 85651; 86140; 87040; 90471; 90715; 96374; 96375; 99284; J0696; J1885; J7040; 82040; 82247; 82310; 82374; 82435; 82565; 82947; 84075; 84132; 84155; 84295; 84450; 84460; 84520

== ENCOUNTER 2018-05-31 09:58 | Emergency (ER) | payer MEDICARE ==
[2018-01-31 11:17] VITALS: Wt 83.9 kg
[~2018-05-31 09:58] MED LIST changes: +CEPH500T7 PO
[2018-05-31 10:06] VITALS: BP 131/87
[2018-05-31] MEDS ORDERED: INDO-21 PO (10:26)
--- NOTE | 2018-05-31 10:26 | ER Report ---
History and Physical Time Seen By : 10:20 Hx. of Stated Complaint: recheck of left hand from yesterday HPI/ROS CHIEF COMPLAINT: Recheck HISTORY OF PRESENT ILLNESS: Patient is a 72-year-old male who returns to the emergency department for reevaluation of redness to his left hand and forearm. Patient had a previous fall this past Friday was seen in the emergency department yesterday diagnosed with a distal nondisplaced 3rd medical carpal fracture along with some abrasions and cellulitis. The erythema has significantly improved and there is no longer any tenderness to the forearm however the dorsum of the hand has some increased swelling and pain. Erythema however has improved. Patient is taking his antibiotics as directed. REVIEW OF SYSTEMS: Constitutional: No fever, no chills. Musculoskeletal: Left hand pain Skin: Improvement in redness to the hand and forearm Allergies: Coded Allergies: levofloxacin (Unverified Allergy, Severe, JOINT PAINS, 05/31/18) hyoscyamine (Verified Allergy, Intermediate, 05/31/18) procaine (Verified Allergy, Intermediate, 05/31/18) Home Meds Active Scripts Indomethacin (INDOMETHACIN) 25 Mg Capsule, 25 MG PO TID for PAIN, #12 CAPSULE 0 Refills Prov:CHUY REA MD 05/31/18 Cephalexin 500 Mg Tab (KEFLEX 500 MG TAB) 500 Mg Tablet, 500 MG PO Q6H, #28 TAB 0 Refills TAKE ONE TABLET BY MOUTH EVERY SIX HOURS Prov:CHUY REA MD 05/30/18 Oxycodone Hcl/Acetaminophen (PERCOCET 5-325 MG TABLET) 1 Each Tablet, 1 EACH PO Q4H for PAIN, #12 TAB 0 Refills Prov:CHUY REA MD 05/30/18 Reported Medications Aspirin (ASPIR 81) 81 Mg Tablet.dr, 1 TAB PO QDAY, TAB 04/04/14 Discontinued Reported Medications Ciprofloxacin 500 Mg Tab (CIPROFLOXACIN 500 MG TAB) 500 Mg Tablet, 500 MG PO BID, #20 TAB 0 Refills 01/31/18 Famotidine (PEPCID) 20 Mg Tablet, 20 MG PO BID, #20 TAB 0 Refills 01/31/18 Acetaminophen With Codeine # 3 (TYLENOL WITH CODEINE #3 TABLET) 1 Each Tablet, 1 TAB PO Q6H PRN for PAIN, #20 TAB 0 Refills 01/31/18 Ibuprofen (IBUPROFEN) 200 Mg Capsule, 2 CAP PO HS, CAPSULE 01/30/18 Past Medical/Surgical History Noncontributory Hx Smoking: No Smoking Status: Never Smoker Exposure to Second Hand Smoke?: No Hx Substance Use Disorder: No Hx Alcohol Use: No Constitutional Vital Sign - Last 24 Hours 05/31/18 10:06 Temp 97.6 Pulse 93 Resp 12 B/P (MAP) 131/87 Pulse Ox 95 O2 Delivery Room Air Physical Exam General appearance: alert no distress Left hand: There is swelling to the dorsum of the hand there is no obvious deformity to the hand. There is moderate tenderness to the base of the 3rd metacarpal. There is no snuff box tenderness. Skin: Intact; proved erythema from yesterday. Neurologic exam: The patient has normal sensation distal to the injury. Tendon function is intact. Vascular exam: Normal pulses and capillary refill in the fingers Medical Decision Making ED Course/Re-evaluation ED Course 05/31/2018 10:23:24 am cellulitis is significantly improved I will have the patient continues antibiotics. We'll start additional pain medicine secondary to still having pain in the hand. We will likely discharge home Decision to Disposition Date: May 31, 2018 Decision to Disposition Time: 10:23 Depart Departure Latest Vital Signs Vital Signs Date Time Temp Pulse Resp B/P (MAP) Pulse Ox O2 Delivery O2 Flow Rate FiO2 05/31/18 10:06 97.6 93 12 131/87 95 Room Air Impression: Primary Impression: Cellulitis Condition: Improved Disposition: HOME OR SELF-CARE Referrals: LUKAS WALTERS MD (PCP) New Scripts Indomethacin (INDOMETHACIN) 25 Mg Capsule 25 MG PO TID for PAIN, #12 CAPSULE 0 Refills Prov: CHUY REA MD 05/31/18 Patient Instructions: Cellulitis (DC) Additional Instructions: Continue to take your antibiotics as directed until complete. If your pain or symptoms worsen at any time he should return to the emergency department for reevaluation. Be sure to call for follow-up at [facility] for evaluation of your suspected hand fracture. Problem Qualifiers Primary Impression: Cellulitis Site of cellulitis: extremity Site of cellulitis of extremity: upper extremity Laterality: left Qualified Codes: L03.114 - Cellulitis of left upper limb CHUY REA MD May 31, 2018 10:26
[2018-05-31] MEDS ORDERED: INDOMETHACIN 25 MG CAP PO ONE (10:30)
== END 2018-05-31 10:42 | disposition home or self-care (01) ==
LOC: ER 10:28
DX: L03.114 Cellulitis of left upper limb (principal)
CPT/HCPCS: 99283; A9270

== ENCOUNTER 2018-06-17 08:46 | Emergency (ER) | payer MEDICARE ==
[2018-01-31 11:17] VITALS: Wt 82.6 kg
--- NOTE | 2018-06-17 08:50 | ER Report ---
History and Physical Time Seen By MD: 08:50 HPI/ROS CHIEF COMPLAINT: Suprapubic tenderness, difficulty urinating HISTORY OF PRESENT ILLNESS: Patient is a 72-year-old male with a history of genitourinary issue is followed by Dr. Kruger. Patient reports over the past several weeks he has been having increasing difficulty urinating. Patient reports that he did have a history of a nephrectomy as a child at approximately 11 years of age. Patient reports having a genitourinary procedure done in March by Dr. Kruger. He notes having a pinpoint stricture of the urethra and has had multiple "Roto-Rooter" surgeries in the past. Patient is afebrile at time of evaluation complaining of severe episodic stabbing pains of the lower abdomen. Patient reports having overflow incontinence over the past several days. REVIEW OF SYSTEMS: Constitutional: No fever, no chills. Eyes: No discharge. ENT: No sore throat. Cardiovascular: No chest pain, no palpitations. Respiratory: No cough, no shortness of breath. Gastrointestinal: No abdominal pain, no vomiting. Genitourinary: + overflow incontinence, + suprapubic tenderness, hx nephrectomy Musculoskeletal: No back pain. Skin: No rashes. Neurological: No headache. Allergies: Coded Allergies: levofloxacin (Unverified Allergy, Severe, JOINT PAINS, 05/31/18) hyoscyamine (Verified Allergy, Intermediate, 05/31/18) procaine (Verified Allergy, Intermediate, 05/31/18) Home Meds Reported Medications Aspirin (ASPIR 81) 81 Mg Tablet.dr, 1 TAB PO QDAY, TAB 04/04/14 Discontinued Scripts Indomethacin (INDOMETHACIN) 25 Mg Capsule, 25 MG PO TID for PAIN, #12 CAPSULE 0 Refills Prov:CHUY REA MD 05/31/18 Cephalexin 500 Mg Tab (KEFLEX 500 MG TAB) 500 Mg Tablet, 500 MG PO Q6H, #28 TAB 0 Refills TAKE ONE TABLET BY MOUTH EVERY SIX HOURS Prov:CHUY REA MD 05/30/18 Oxycodone Hcl/Acetaminophen (PERCOCET 5-325 MG TABLET) 1 Each Tablet, 1 EACH PO Q4H for PAIN, #12 TAB 0 Refills Prov:CHUY REA MD 05/30/18 Hx Smoking: No Smoking Status: Never Smoker Exposure to Second Hand Smoke?: No Hx Substance Use Disorder: No Hx Alcohol Use: No Constitutional Physical Exam General Appearance: The patient is alert, has no immediate need for airway protection and no signs of toxicity. Moderate distress d/t pain Eyes: Pupils equal and round no pallor or injection. ENT, Mouth: Mucous membranes are moist. Respiratory: There are no retractions, lungs are clear to auscultation. Cardiovascular: Regular rate and rhythm. Gastrointestinal: Abdomen is soft and + tender in the supra pubic distribution, no masses, bowel sounds normal. Neurological: No focal neuro deficits Skin: Warm and dry, no rashes. Musculoskeletal: Neck is supple non tender. Extremities are nontender, nonswollen and have full range of motion. DIFFERENTIAL DIAGNOSIS: After history and physical exam differential diagnosis was considered for urethral stricture, urinary tract infection, nephritis, pyelo-nephritis, cystitis, bladder outlet obstruction Medical Decision Making Data Points Laboratory Hematology Test 06/17/18 09:22 06/17/18 10:28 Red Blood Count 5.26 M/uL (4.00-5.60) Mean Corpuscular Volume 85.9 fL (80.0-96.0) Mean Corpuscular Hemoglobin 29.1 pg (26.0-33.0) Mean Corpuscular Hemoglobin Concent 33.8 g/dL (32.0-36.0) Red Cell Distribution Width 12.8 % (11.5-14.5) Mean Platelet Volume 8.3 fL (7.2-11.1) Neutrophils (%) (Auto) 62.5 % (39.4-72.5) Lymphocytes (%) (Auto) 21.7 % (17.6-49.6) Monocytes (%) (Auto) 11.8 % (4.1-12.4) Eosinophils (%) (Auto) 3.1 % (0.4-6.7) Basophils (%) (Auto) 0.9 % (0.3-1.4) Nucleated RBC Relative Count (auto) 0.0 /100WBC Neutrophils # (Auto) 5.4 K/uL (2.0-7.4) Lymphocytes # (Auto) 1.9 K/uL (1.3-3.6) Monocytes # (Auto) 1.0 K/uL (0.3-1.0) Eosinophils # (Auto) 0.3 K/uL (0.0-0.5) Basophils # (Auto) 0.1 K/uL (0.0-0.1) Nucleated RBC Absolute Count (auto) 0.00 K/uL Sodium Level 140 mmol/L (137-145) Potassium Level 4.3 mmol/L (3.5-5.0) Chloride Level 108 mmol/L (98-107) Carbon Dioxide Level 22 mmol/L (22-30) Blood Urea Nitrogen 21 mg/dl (9-21) Creatinine 1.30 mg/dl (0.66-1.25) Glomerular Filtration Rate Calc 54.6 Random Glucose 87 mg/dl (75-110) Calcium Level 9.5 mg/dl (8.4-10.2) Total Bilirubin 0.9 mg/dl (0.2-1.3) Aspartate Amino Transf (AST/SGOT) 38 U/L (0-35) Alanine Aminotransferase (ALT/SGPT) 37 U/L (0-56) Alkaline Phosphatase 67 U/L (0-126) Total Protein 7.6 g/dl (6.3-8.2) Albumin 3.8 g/dl (3.5-5.0) Lipase 142 U/L (23-300) Urine Color Yellow Urine Clarity Clear Urine pH 5.0 pH (4.8-9.5) Urine Specific Adel 1.017 Urine Protein Negative mg/dL (NEGATIVE) Urine Glucose (UA) Negative mg/dL (NEGATIVE) Urine Ketones Negative mg/dL (NEGATIVE) Urine Blood Negative (NEGATIVE) Urine Nitrite Negative (NEGATIVE) Urine Bilirubin Negative (NEGATIVE) Urine Urobilinogen Negative mg/dL (0.2-1.9) Urine Leukocyte Esterase Negative (NEGATIVE) Urine RBC 1 /HPF (0-2/HPF) Urine WBC 1 /HPF (0-5/HPF) Urine Squamous Epithelial Cells Few /LPF (NONE-FEW) Urine Bacteria Negative /HPF (NONE-FEW) Urine Mucus None /HPF (NONE-FEW) Chemistry Test 06/17/18 09:22 06/17/18 10:28 White Blood Count 8.7 k/uL (4.5-11.0) Red Blood Count 5.26 M/uL (4.00-5.60) Hemoglobin 15.3 g/dL (14.0-18.0) Hematocrit 45.1 % (42.0-52.0) Mean Corpuscular Volume 85.9 fL (80.0-96.0) Mean Corpuscular Hemoglobin 29.1 pg (26.0-33.0) Mean Corpuscular Hemoglobin Concent 33.8 g/dL (32.0-36.0) Red Cell Distribution Width 12.8 % (11.5-14.5) Platelet Count 302 K/uL (150-450) Mean Platelet Volume 8.3 fL (7.2-11.1) Neutrophils (%) (Auto) 62.5 % (39.4-72.5) Lymphocytes (%) (Auto) 21.7 % (17.6-49.6) Monocytes (%) (Auto) 11.8 % (4.1-12.4) Eosinophils (%) (Auto) 3.1 % (0.4-6.7) Basophils (%) (Auto) 0.9 % (0.3-1.4) Nucleated RBC Relative Count (auto) 0.0 /100WBC Neutrophils # (Auto) 5.4 K/uL (2.0-7.4) Lymphocytes # (Auto) 1.9 K/uL (1.3-3.6) Monocytes # (Auto) 1.0 K/uL (0.3-1.0) Eosinophils # (Auto) 0.3 K/uL (0.0-0.5) Basophils # (Auto) 0.1 K/uL (0.0-0.1) Nucleated RBC Absolute Count (auto) 0.00 K/uL Glomerular Filtration Rate Calc 54.6 Calcium Level 9.5 mg/dl (8.4-10.2) Total Bilirubin 0.9 mg/dl (0.2-1.3) Aspartate Amino Transf (AST/SGOT) 38 U/L (0-35) Alanine Aminotransferase (ALT/SGPT) 37 U/L (0-56) Alkaline Phosphatase 67 U/L (0-126) Total Protein 7.6 g/dl (6.3-8.2) Albumin 3.8 g/dl (3.5-5.0) Lipase 142 U/L (23-300) Urine Color Yellow Urine Clarity Clear Urine pH 5.0 pH (4.8-9.5) Urine Specific Adel 1.017 Urine Protein Negative mg/dL (NEGATIVE) Urine Glucose (UA) Negative mg/dL (NEGATIVE) Urine Ketones Negative mg/dL (NEGATIVE) Urine Blood Negative (NEGATIVE) Urine Nitrite Negative (NEGATIVE) Urine Bilirubin Negative (NEGATIVE) Urine Urobilinogen Negative mg/dL (0.2-1.9) Urine Leukocyte Esterase Negative (NEGATIVE) Urine RBC 1 /HPF (0-2/HPF) Urine WBC 1 /HPF (0-5/HPF) Urine Squamous Epithelial Cells Few /LPF (NONE-FEW) Urine Bacteria Negative /HPF (NONE-FEW) Urine Mucus None /HPF (NONE-FEW) Urinalysis Test 06/17/18 10:28 Urine Color Yellow Urine Clarity Clear Urine pH 5.0 pH (4.8-9.5) Urine Specific Adel 1.017 Urine Protein Negative mg/dL (NEGATIVE) Urine Glucose (UA) Negative mg/dL (NEGATIVE) Urine Ketones Negative mg/dL (NEGATIVE) Urine Blood Negative (NEGATIVE) Urine Nitrite Negative (NEGATIVE) Urine Bilirubin Negative (NEGATIVE) Urine Urobilinogen Negative mg/dL (0.2-1.9) Urine Leukocyte Esterase Negative (NEGATIVE) Urine RBC 1 /HPF (0-2/HPF) Urine WBC 1 /HPF (0-5/HPF) Urine Squamous Epithelial Cells Few /LPF (NONE-FEW) Urine Bacteria Negative /HPF (NONE-FEW) Urine Mucus None /HPF (NONE-FEW) ED Course/Re-evaluation ED Course Patient is a 72-year-old male here with complaints of lower abdominal pain, bilateral obstruction. Patient had a history of urethral strictures status post ureteroplasty. Patient had a distended bladder and overflow incontinence per his description. I discussed the patient with Dr. Jeffries evaluated the patient and placed a catheter which was draining well. Patient will follow-up in the outpatient setting with urology. Labs are unremarkable. Patient was stable at time of discharge. Decision to Disposition Date: Jun 17, 2018 Decision to Disposition Time: 11:04 Depart Departure Latest Vital Signs Impression: Primary Impression: Bladder outlet obstruction Condition: Improved Disposition: HOME OR SELF-CARE Patient Instructions: Mc Catheter Placement and Care (ED) Additional Instructions: Please follow up with urology in the outpatient setting. Please return promptly if you develop fevers, worsening pain, decreased urinary output, nausea, vo miting. CLAY LOPEZ DO Jun 17, 2018 08:50
[2018-06-17] MEDS ORDERED: fentaNYL CITR 100 MCG/2 ML AMP IVP ONE ×2 (09:10→10:15)
[2018-06-17 09:37] LABS: PLATELET COUNT, AUTOMATED 302 K/uL (150-450)
[2018-06-17] MEDS ORDERED: cefTRIAXone 1 GM VIAL IVP ONE (10:40)
[2018-06-17 12:00] VITALS: BP 107/61
--- NOTE | 2018-06-17 17:31 | CONSULTATION ---
EVENT DATE: June 17, 2018 REASON FOR CONSULTATION Urinary retention. 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 He subsequently developed urethral stricture disease which was treated with both urethral dilation and apparently a buccal mucosal onlay graft procedure. Since Friday, he has been experiencing difficulty initiating his stream, and for the last 24 hours has had no significant stream and has been very uncomfortable with distention and intermittent small volume voids. He came to the Emergency Room and was evaluated and found to have urinary retention. PHYSICAL EXAMINATION GENERAL: Acutely uncomfortable 72-year-old gentleman. ABDOMEN: Soft, but the bladder is palpable above the symphysis pubis. There is a well-healed left flank incision. GENITOURINARY: Phallus is normal. Testes normal. No masses. PROCEDURE At the bedside after sterile prep and drape, I was able to place a filiform through the stricture into the bladder and dilate this to 20-Tunisian. After this, I was able to place a 14-Tunisian coude-tipped catheter into the bladder, which drained 400 mL of clear urine. IMPRESSION Probable postoperative urethral stricture. PLAN I would like him to have at least a week of bladder rest with the indwelling Mc catheter. I would like him to follow up in my clinic for a [id number] voiding trial in one week. I will probably recommend he have an outpatient retrograde urethrogram to define his recurrent stricture disease a little more accurately. We could discuss his management options at the time of his followup. SARBJIT
== END 2018-06-17 12:21 | disposition home or self-care (01) ==
LOC: ER 08:58
DX: N32.0 Bladder-neck obstruction (principal)
CPT/HCPCS: 81001; 83690; 85025; 96374; 96375; 96376; 99284; A4338; J0696; J3010; 82040; 82247; 82310; 82374; 82435; 82565; 82947; 84075; 84132; 84155; 84295; 84450; 84460; 84520

== ENCOUNTER 2018-07-23 11:03 | Inpatient (IN) | payer BC, MEDICARE ==
[2018-01-31 11:17] VITALS: Wt 81.2 kg
[~2018-07-23 11:03] MED LIST changes: +DOXY-181 PO
[2018-07-23] MEDS ORDERED: NS(*) 0.9% 1000 ML BAG 1,000 ML IV ONE ×2 (11:32→14:35)
--- NOTE | 2018-07-23 11:32 | ER Report ---
History and Physical Time Seen By MD: 11:31 Hx. of Stated Complaint: both lower feet hurt i think i have gout HPI/ROS CHIEF COMPLAINT: Swelling in the foot. HISTORY OF PRESENT ILLNESS: Patient is a 73-year-old male [place] [employer] [place] He lives by himself. States over the last week he thought he was getting a flare of his gout which is a diagnosis he carries. But states that over the past day or 2 he's noticed that his right foot has become increasingly more painful red and swollen. He actually stated that 2 days ago the redness was streaking up the calf on the right leg however that seems to be improving. Patient presents secondary to pain. He denies any injury. States the pain feels like a burning sensation and is severe in intensity. Patient denies any significant past medical history although he does not follow with a physician very often. He does admit to some subjective chills last evening but did not take his temperature. REVIEW OF SYSTEMS: Constitutional: No fever, no chills. Cardiovascular: No chest pain, no palpitations. Respiratory: No cough, no shortness of breath. Gastrointestinal: No abdominal pain, no vomiting. Genitourinary: No hematuria. Musculoskeletal: Severe right foot pain Skin: Redness to the right foot Allergies: Coded Allergies: levofloxacin (Unverified Allergy, Severe, JOINT PAINS, 07/23/18) hyoscyamine (Verified Allergy, Intermediate, 07/23/18) procaine (Verified Allergy, Intermediate, 07/23/18) Home Meds Discontinued Reported Medications Aspirin (ASPIR 81) 81 Mg Tablet.dr, 1 TAB PO QDAY, TAB 04/04/14 Discontinued Scripts Doxycycline Hyclate (DOXYCYCLINE HYCLATE) 100 Mg Capsule, 100 MG PO BID for 5 Days, #10 CAPSULE Prov:JEANNINE BUNRHAM MD 07/01/18 Past Medical/Surgical History History of gout Hx Smoking: No Smoking Status: Never Smoker Exposure to Second Hand Smoke?: No Hx Substance Use Disorder: No Hx Alcohol Use: No Constitutional Vital Sign - Last 24 Hours 07/23/18 07/23/18 07/23/18 07/23/18 11:03 11:16 11:17 11:30 Temp 98.2 Pulse 100 102 Resp 22 B/P (MAP) 145/81 (102) 145/81 134/72 (92) Pulse Ox 94 94 07/23/18 07/23/18 07/23/18 07/23/18 11:33 12:00 12:03 12:25 Pulse 93 79 Resp 15 B/P (MAP) 116/66 (83) Pulse Ox 94 96 O2 Flow Rate 2.0 07/23/18 12:32 Pulse 79 Pulse Ox 71 O2 Delivery Room Air Physical Exam General Appearance: The patient is alert, has no immediate need for airway protection and no current signs of toxicity. Eyes: Pupils equal and round no injection. Respiratory: Chest is non tender, lungs are clear to auscultation. Cardiac: regular rate and rhythm Gastrointestinal: Abdomen is soft and non tender, no masses, bowel sounds normal. Musculoskeletal: Neck: Neck is supple and non tender. Extremities have full range of motion and are non tender. Skin: Examination of the right foot reveals area of erythema mostly comprising the right great toe and intertriginous spaces spreading up the dorsum of the foot as well as the lateral aspect of the ankle. There appears to be no fluctuance or drainage however there is some cracking and the skin with crusting. As an incidental finding to the patient's right upper chest near the clavicular area there is an approximately 2-3 cm orange and brown irregularly bordered macule. Medical Decision Making Data Points Result Diagram: 07/23/18 1152 07/23/18 1152 Laboratory Hematology Test 07/23/18 11:52 Red Blood Count 4.51 M/uL (4.00-5.60) Mean Corpuscular Volume 86.0 fL (80.0-96.0) Mean Corpuscular Hemoglobin 29.3 pg (26.0-33.0) Mean Corpuscular Hemoglobin Concent 34.1 g/dL (32.0-36.0) Red Cell Distribution Width 12.4 % (11.5-14.5) Mean Platelet Volume 7.7 fL (7.2-11.1) Neutrophils (%) (Auto) 80.9 % (39.4-72.5) Lymphocytes (%) (Auto) 10.8 % (17.6-49.6) Monocytes (%) (Auto) 7.8 % (4.1-12.4) Eosinophils (%) (Auto) 0.2 % (0.4-6.7) Basophils (%) (Auto) 0.3 % (0.3-1.4) Nucleated RBC Relative Count (auto) 0.0 /100WBC Neutrophils # (Auto) 10.1 K/uL (2.0-7.4) Lymphocytes # (Auto) 1.3 K/uL (1.3-3.6) Monocytes # (Auto) 1.0 K/uL (0.3-1.0) Eosinophils # (Auto) 0.0 K/uL (0.0-0.5) Basophils # (Auto) 0.0 K/uL (0.0-0.1) Nucleated RBC Absolute Count (auto) 0.00 K/uL Erythrocyte Sedimentation Rate 70 mm/HOUR (0-20) Sodium Level 134 mmol/L (137-145) Potassium Level 4.1 mmol/L (3.5-5.0) Chloride Level 103 mmol/L (98-107) Carbon Dioxide Level 20 mmol/L (22-30) Blood Urea Nitrogen 20 mg/dl (9-21) Creatinine 1.40 mg/dl (0.66-1.25) Glomerular Filtration Rate Calc 50.0 Random Glucose 105 mg/dl (75-110) Lactate 1.4 mmol/L (0.7-2.1) Calcium Level 9.1 mg/dl (8.4-10.2) Total Bilirubin 1.2 mg/dl (0.2-1.3) Aspartate Amino Transf (AST/SGOT) 26 U/L (0-35) Alanine Aminotransferase (ALT/SGPT) 30 U/L (0-56) Alkaline Phosphatase 74 U/L (0-126) C-Reactive Protein 8.6 mg/dl (<1.0) Total Protein 7.0 g/dl (6.3-8.2) Albumin 3.7 g/dl (3.5-5.0) Chemistry Test 07/23/18 11:52 White Blood Count 12.4 k/uL (4.5-11.0) Red Blood Count 4.51 M/uL (4.00-5.60) Hemoglobin 13.2 g/dL (14.0-18.0) Hematocrit 38.8 % (42.0-52.0) Mean Corpuscular Volume 86.0 fL (80.0-96.0) Mean Corpuscular Hemoglobin 29.3 pg (26.0-33.0) Mean Corpuscular Hemoglobin Concent 34.1 g/dL (32.0-36.0) Red Cell Distribution Width 12.4 % (11.5-14.5) Platelet Count 338 K/uL (150-450) Mean Platelet Volume 7.7 fL (7.2-11.1) Neutrophils (%) (Auto) 80.9 % (39.4-72.5) Lymphocytes (%) (Auto) 10.8 % (17.6-49.6) Monocytes (%) (Auto) 7.8 % (4.1-12.4) Eosinophils (%) (Auto) 0.2 % (0.4-6.7) Basophils (%) (Auto) 0.3 % (0.3-1.4) Nucleated RBC Relative Count (auto) 0.0 /100WBC Neutrophils # (Auto) 10.1 K/uL (2.0-7.4) Lymphocytes # (Auto) 1.3 K/uL (1.3-3.6) Monocytes # (Auto) 1.0 K/uL (0.3-1.0) Eosinophils # (Auto) 0.0 K/uL (0.0-0.5) Basophils # (Auto) 0.0 K/uL (0.0-0.1) Nucleated RBC Absolute Count (auto) 0.00 K/uL Erythrocyte Sedimentation Rate 70 mm/HOUR (0-20) Glomerular Filtration Rate Calc 50.0 Lactate 1.4 mmol/L (0.7-2.1) Calcium Level 9.1 mg/dl (8.4-10.2) Total Bilirubin 1.2 mg/dl (0.2-1.3) Aspartate Amino Transf (AST/SGOT) 26 U/L (0-35) Alanine Aminotransferase (ALT/SGPT) 30 U/L (0-56) Alkaline Phosphatase 74 U/L (0-126) C-Reactive Protein 8.6 mg/dl (<1.0) Total Protein 7.0 g/dl (6.3-8.2) Albumin 3.7 g/dl (3.5-5.0) ED Course/Re-evaluation Clinical Indication for ER IV: IV Access ED Course Plan at this time will be IV hydration as well as IV Rocephin covering for skin luis. We'll obtain CBC blood cultures and ESR C-reactive protein and lactate. 07/23/2018 1:20:42 pm patient is admitted at this time for treatment of cellulitis however I did mention to Dr. Reza the concerning finding of possible malignant melanoma-like rash to the right upper chest wall. Decision to Disposition Date: Jul 23, 2018 Decision to Disposition Time: 13:21 Depart Departure Latest Vital Signs Vital Signs Date Time Temp Pulse Resp B/P (MAP) Pulse Ox O2 Delivery O2 Flow Rate FiO2 07/23/18 12:32 79 71 Room Air 07/23/18 12:25 2.0 07/23/18 12:03 15 07/23/18 12:00 116/66 (83) 07/23/18 11:17 98.2 Impression: Primary Impression: Cellulitis Condition: Improved Disposition: HOME OR SELF-CARE New Scripts No Active Prescriptions or Reported Meds Problem Qualifiers Primary Impression: Cellulitis Site of cellulitis: extremity Site of cellulitis of extremity: lower extremity Laterality: right Qualified Codes: L03.115 - Cellulitis of right lower limb CHUY REA MD Jul 23, 2018 11:31
[2018-07-23] MEDS ORDERED: cefTRIAXone 1 GM VIAL IVP ONE (11:35)
[2018-07-23] MEDS ORDERED: KETOROLAC 15 MG/ML VIAL IVP ONE (11:35)
[2018-07-23 12:02] LABS: PLATELET COUNT, AUTOMATED 338 K/uL (150-450)
[2018-07-23] MEDS ORDERED: fentaNYL CITR 100 MCG/2 ML AMP IVP ONE (12:25)
--- NOTE | 2018-07-23 12:53 | RADIOLOGY IMAGING REPORT ---
FACILITY: [facility] PATIENT NAME: Scar Alexandra : 1945 MR: [id number] V: [id number] EXAM DATE: ORDERING PHYSICIAN: CHUY REA TECHNOLOGIST: Location: [facility] [place] Patient: Scar Alexandra : 1945 Visit/Account:[id number] Date of Sevice: 07/23/2018 Study: FOOT 3 VIEWS RIGHT Indication: Pain Comparison study: October 18, 2017 Findings: AP lateral and oblique views of the right foot demonstrates the presence of hallux valgus. There is no evidence of acute bony abnormality. There is no evidence of lytic or blastic bony lesio ns. There is no evidence of focal osteopenia to suggest the presence of osteomyelitis. IMPRESSION: Hallux valgus, otherwise unremarkable. Report Dictated By: Emory Carrillo at 07/23/2018 12:33 PM Report E-Signed By: Emory Carrillo at 07/23/2018 12:47 PM WSN:[email or web address]
[2018-07-23 14:12] VITALS: BP 137/83
[2018-07-23] MEDS ORDERED: MORPHINE 1 MG/ML 30 ML PCA IV PRN (14:35)
[2018-07-23] MEDS ORDERED: NS(*) 0.9% 1000 ML BAG 1,000 ML IV PRN (14:38)
[2018-07-23] MEDS ORDERED: ACETAMINOPHEN 325 MG TAB PO PRN (14:40)
[2018-07-23] MEDS ORDERED: FLUSH 10 ML SYR IVP PRN (14:40)
[2018-07-23] MEDS ORDERED: COLCHICINE 0.6 MG TAB PO ONE ×2 (15:00→21:00)
[2018-07-23] MEDS ORDERED: PCA LOCKBOX KEYS XX ONE ×2 (15:01→15:05)
[2018-07-23] MEDS ORDERED: NS(*) 0.9% 500 ML BAG 500 ML ONE (15:36)
[2018-07-23] MEDS: CLINDAMYCIN(*) 600 MG/NS 50 ML 50 ML IVPB SCH (15:45)
--- NOTE | 2018-07-23 15:57 | History & Physical ---
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 He reports onset of bilateral foot pain mainly in great toes "about a week ago". He states he "tried to tough it out" and even went snowshoeing a couple of days ago. The pain was accompanied by some swelling and redness, all of which have progressed over the past week. He also had occasional feverish sensations and has felt "chilled" most of the time. The erythema has progressed over his lateral right foot and distal leg, while the left remained around his first MTP. He was evaluated in the ER and felt to have cellulitis. He was recommended for admission. History Problems: (1) Gout Status: Chronic (2) Stroke Status: Chronic (3) Retinitis pigmentosa Status: Chronic (4) Osteoarthritis Status: Chronic (5) Hypercholesterolemia Onset Date: 06/07/2014 Status: Chronic (6) Migraine Status: Chronic (7) Urethral stricture Status: Chronic Comment: recurrent (8) History of nephrectomy, unilateral Status: Resolved Comment: Left, as a child Home Meds Discontinued Reported Medications Aspirin (ASPIR 81) 81 Mg Tablet.dr, 1 TAB PO QDAY, TAB 04/04/14 Discontinued Scripts Doxycycline Hyclate (DOXYCYCLINE HYCLATE) 100 Mg Capsule, 100 MG PO BID for 5 Days, #10 CAPSULE Prov:JEANNINE BURNHAM MD 07/01/18 Allergies: Coded Allergies: levofloxacin (Unverified Allergy, Severe, JOINT PAINS, 07/23/18) hyoscyamine (Verified Allergy, Intermediate, 07/23/18) procaine (Verified Allergy, Intermediate, 07/23/18) Patient History: FH: emphysema FATHER, , Age:69 (hereditary) FH: heart disease MOTHER, , Age:85 5 SISTERS Hx Smoking: Yes (as a young teenager) Smoking Status: Former Smoker Exposure to Second Hand Smoke?: No Caffeine/Cups Per Day: Never Hx Alcohol Use: No Hx Substance Use Disorder: No Review of Systems Constitutional: Fever, Chills Neurological: No Syncope, No Confusion ENT: No Hearing Loss Cardiovascular: No Chest Pain Respiratory: No Shortness of Breath Gastrointestinal: No Nausea, No Vomiting Musculoskeletal: Pain, Impaired Mobility Exam Vital Signs Vital Signs Date Time Temp Pulse Resp B/P (MAP) Pulse Ox O2 Delivery O2 Flow Rate FiO2 07/23/18 14:12 78 16 137/83 (101) 97 Nasal Cannula 2.0 07/23/18 11:17 98.2 General Appearance: Alert, Awake Neuro: Other (mild left-sided weakness in upper and lower extremities (4-4+/5) all groups) Eyes: PERRLA ENT: Oropharynx Clear Neck: No Masses Cardiovascular: Regular Rate and Rhythm Respiratory: Clear to Auscultation Chest: No Tenderness GI: Abd Soft and Non-Tender : No CVA Tenderness, Other (healed flank scar) Lymph: No Adenopathy Musculoskeletal: Other (erythema/edema/callor over both first MTPs with significant pain with ROM) Extremities: Warm, Perfused, Other (significant bunion deformity of both great toes/healed surgical scar between first and second toes on right) Integumentary: Scaly / Dry Skin, Other (There is erythema extending from right first MTP proximally over lateral aspect of the foot/no open area or drainage. Unusual shaped callous between first and second toes on right with small open area and some serous drainage. Large irregular shaped and pigmented lesion over right supraclavicular area - he is unsure how long this has been present.) Psych: Alert & Oriented X3 Medical Decision Making Data Points Result Diagram: 07/23/18 1152 07/23/18 1152 Item Value Date Time Albumin 3.7 g/dl 07/23/18 1152 Total Protein 7.0 g/dl 07/23/18 1152 C-Reactive Protein 8.6 mg/dl H 07/23/18 1152 Alkaline Phosphatase 74 U/L 07/23/18 1152 Alanine Aminotransferase (ALT/SGPT) 30 U/L 07/23/18 1152 Aspartate Amino Transf (AST/SGOT) 26 U/L 07/23/18 1152 Total Bilirubin 1.2 mg/dl 07/23/18 1152 Calcium Level 9.1 mg/dl 07/23/18 1152 Lactate 1.4 mmol/L 07/23/18 1152 EKG / Imaging Imaging PATIENT NAME: Scar Alexandra : 1945 MR: [id number] V: [id number] EXAM DATE: [id number] ORDERING PHYSICIAN: CHUY REA TECHNOLOGIST: Location: [facility] Patient: Scar Alexandra : 1945 Visit/Account:[id number] Date of Sevice: 07/23/2018 Study: FOOT 3 VIEWS RIGHT Indication: Pain Comparison study: October 18, 2017 Findings: AP lateral and oblique views of the right foot demonstrates the presence of hallux valgus. There is no evidence of acute bony abnormality. There is no evidence of lytic or blastic bony lesions. There is no evidence of focal osteopenia to suggest the presence of osteomyelitis. IMPRESSION: Hallux valgus, otherwise unremarkable. Report Dictated By: Emory Carrillo at 07/23/2018 12:33 PM Report E-Signed By: Emory Carrillo at 07/23/2018 12:47 PM WSN:[id number] Assessment and Plan Problems: (1) Cellulitis Status: Acute Assessment & Plan: It appears he has an acute cellulitis involving his right foot (in addition to acute gout of both first MTPs). The entry site may be the callous and small open area between his first and second toes. Will place on IV clindamycin. Elevate his foot. Watch closely. (2) Gout Status: Acute Assessment & Plan: It appears he has acute gout in both of his great toes/first MTPs. Will give a couple doses of colchicine to see if can get him some relief. Check uric acid level. Restart his allopurinol when acute episode is resolved. (3) Stroke Status: Chronic Assessment & Plan: He has mild left sided paresis, but appears to be rather functional. (4) Pigmented skin lesion Status: Chronic Assessment & Plan: The lesion in right supraclavicular area is very concerning for a possible melanoma. Will need to have him see dermatology or general surgery very soon for biopsy. Venous Thromboembolism Antithrombotics Is Pt On Any Antithrombotics?: Yes Exam Sepsis Risk: Possible Sepsis Risk Problem Qualifiers (1) Cellulitis: Site of cellulitis: extremity Site of cellulitis of extremity: lower extremity Laterality: right Qualified Codes: L03.115 - Cellulitis of right lower limb DARWIN BURGER MD Jul 23, 2018 15:57
[2018-07-23 19:09] VITALS: BP 111/60
[2018-07-24 00:22] VITALS: BP 108/68
[2018-07-24] MEDS: CLINDAMYCIN(*) 600 MG/NS 50 ML 50 ML IVPB SCH ×2 (00:47→08:32)
[2018-07-24 02:46] VITALS: BP 109/69
[2018-07-24 06:42] LABS: PLATELET COUNT, AUTOMATED 286 K/uL (150-450)
[2018-07-24 06:58] VITALS: BP 119/75
[2018-07-24] MEDS ORDERED: ENOXAPARIN 40 MG/0.4ML SYR SC SCH (09:00)
[2018-07-24] MEDS ORDERED: ALLO100T70 PO (09:56)
[2018-07-24] MEDS ORDERED: CLIN300C99 PO (09:56)
[2018-07-24] MEDS ORDERED: COLC0.6C3 PO (09:56)
[2018-07-24] MEDS ORDERED: INFLUENZA VIRUS VAC 0.5ML SYR IM ONLY ONE (10:00)
--- NOTE | 2018-07-24 10:03 | Hospitalist Depart ---
Discharge Summary Reason for Hosp/Final Diag: (1) Acute gout Hospital Course & Plan: He did present with bilateral pain and erythema around the first metatarsale joints. He was given a loading dose of colchicine, and his symptoms dramatically improved overnight. He reports that he has gout flairs nearly twice a month. His uric acid level was elevated. We have started him on allopurinol. We have also placed him on a prophylactic dose of colchicine, which will need to be continued for the first few months of treatment until his uric acid levels are reduced. (2) Cellulitis Status: Acute Hospital Course & Plan: There was concern that he might have a secondary cellul itis associated with his gout. He was started on clindamycin at admission. He will complete a 5 day course of treatment. (3) Pigmented skin lesion Status: Chronic Hospital Course & Plan: He does have an irregular lesion, which is concerning for melanoma, on his right shoulder girdle. He is scheduled to follow up with Dr. Escoto for biopsy and excision. Departure Latest Vital Signs Vital Signs 07/24/18 07/24/18 07/24/18 07/24/18 02:46 06:58 07:57 07:59 Temp 97.9 Pulse 63 Resp 16 B/P (MAP) 119/75 (90) Pulse Ox 94 O2 Delivery Room Air O2 Flow Rate 1.0 Weight (Pounds): 179 Weight (Ounces): 5.0 Result Diagram: 07/24/18 0543 07/24/18 0543 Condition: Improved Discharge: Home, Self Care Discharge Instructions Home Meds Active Scripts Clindamycin Hcl (CLINDAMYCIN HCL) 300 Mg Capsule, 300 MG PO Q6H, #20 CAPSULE Prov:BRIAN COLIN DO 07/24/18 Allopurinol (ALLOPURINOL) 100 Mg Tablet, 100 MG PO QDAY, #30 TAB Prov:BRIAN COLIN DO 07/24/18 Colchicine (Colchicine) 0.6 Mg Capsule, 1 CAP PO QDAY, #30 CAP Prov:BRIAN COLIN DO 07/24/18 Discontinued Reported Medications Aspirin (ASPIR 81) 81 Mg Tablet., 1 TAB PO QDAY, TAB 04/04/14 Discontinued Scripts Doxycycline Hyclate (DOXYCYCLINE HYCLATE) 100 Mg Capsule, 100 MG PO BID for 5 Days, #10 CAPSULE Prov:JEANNINE BURNHAM MD 07/01/18 Diet: Regular Activity: As Tolerated Copies to: BRIAN ESCOTO MD ; Venous Thromboembolism Antithrombotics Is Pt On Any Antithrombotics?: Yes Problem Qualifiers (1) Cellulitis: Site of cellulitis: extremity Site of cellulitis of extremity: lower extremity Laterality: right Qualified Codes: L03.115 - Cellulitis of right lower limb BRIAN COLIN DO Jul 24, 2018 10:03
== END 2018-07-24 10:33 | disposition home or self-care (01) | DRG 554 ==
LOC: ER 11:13 → MED 13:17
PROVIDERS: ADMIT Internal Medicine; ATTEND Internal Medicine
DX: M10.072 Idiopathic gout, left ankle and foot (principal); L03.115 Cellulitis of right lower limb; I69.354 Hemiplegia and hemiparesis following cerebral infarction affecting left non-dominant side; M10.071 Idiopathic gout, right ankle and foot; H35.52 Pigmentary retinal dystrophy; L98.9 Disorder of the skin and subcutaneous tissue, unspecified; N35.919 Unspecified urethral stricture, male, unspecified site; E78.00 Pure hypercholesterolemia, unspecified; Z87.891 Personal history of nicotine dependence; Z23 Encounter for immunization; Z88.8 Allergy status to other drugs, medicaments and biological substances; Z90.5 Acquired absence of kidney
CPT/HCPCS: 36415; 82040; 82247; 82310; 82374; 82435; 82565; 82947; 83605; 84075; 84132; 84155; 84295; 84450; 84460; 84520; 84550; 85025; 85651; 86140; 87040; 90674; 96361; 96374; 96375; 99285; J0696; J1650; J1885; J2270; J3010; J3490; J7030; J7040

== ENCOUNTER 2018-07-27 09:29 | Emergency (ER) | payer BC, MEDICARE ==
[2018-01-31 11:17] VITALS: Wt 79.4 kg
[~2018-07-27 09:29] MED LIST changes: +CLIN300C99 PO; +COLC0.6C3 PO
--- NOTE | 2018-07-27 09:36 | ER Report ---
History and Physical Time Seen By MD: 09:36 HPI/ROS CHIEF COMPLAINT: Bilateral foot pain, redness, cough HISTORY OF PRESENT ILLNESS: Patient is a 73-year-old male here with complaints of bilateral erythematous feet, suspected doubt flare, cough for greater than 1 week, general malaise. Patient was recently admitted for cellulitis of the bilat eral lower extremities and was discharged on culture seen, allopurinol, clindamycin which she has been taking. Patient reports that over the past several days he has had increasing erythema of the feet, worsening pain and difficulty ambulating. Patient is afebrile at time of evaluation. He does have a history significant for a nephrectomy at 11 years of age. Patient has maximum tenderness in the right MTP consistent with podagra. REVIEW OF SYSTEMS: Constitutional: No fever, + chills. Eyes: No discharge. ENT: No sore throat. Cardiovascular: No chest pain, no palpitations. Respiratory: + cough, + shortness of breath. Gastrointestinal: No abdominal pain, no vomiting. Genitourinary: No hematuria. Musculoskeletal: No back pain. + b/l foot pain Skin: + erythema of b/l feet Neurological: No headache. Allergies: Coded Allergies: levofloxacin (Unverified Allergy, Severe, JOINT PAINS, 07/27/18) hyoscyamine (Verified Allergy, Intermediate, 07/27/18) procaine (Verified Allergy, Intermediate, 07/27/18) Home Meds Active Scripts Clindamycin Hcl (CLINDAMYCIN HCL) 300 Mg Capsule, 300 MG PO Q6H, #20 CAPSULE Prov:BRIAN COLIN DO 07/24/18 Allopurinol (ALLOPURINOL) 100 Mg Tablet, 100 MG PO QDAY, #30 TAB Prov:BRIAN COLIN DO 07/24/18 Colchicine (Colchicine) 0.6 Mg Capsule, 1 CAP PO QDAY, #30 CAP Prov:BRIAN COLIN DO 07/24/18 Discontinued Reported Medications Aspirin (ASPIR 81) 81 Mg Tablet., 1 TAB PO QDAY, TAB 04/04/14 Discontinued Scripts Doxycycline Hyclate (DOXYCYCLINE HYCLATE) 100 Mg Capsule, 100 MG PO BID for 5 Days, #10 CAPSULE Prov:JEANNINE BURNHAM MD 07/01/18 Hx Smoking: Yes (as a young teenager) Smoking Status: Former Smoker Exposure to Second Hand Smoke?: No Hx Substance Use Disorder: No Hx Alcohol Use: No Constitutional Vital Sign - Last 24 Hours 07/27/18 07/27/18 07/27/18 07/27/18 09:29 09:36 09:39 09:45 Temp 98.2 Pulse 77 95 Resp 18 B/P (MAP) 161/106 (124) 161/106 157/80 (105) Pulse Ox 94 95 O2 Delivery Room Air Room Air 07/27/18 07/27/18 07/27/18 07/27/18 09:59 10:00 10:15 10:29 Pulse 88 89 B/P (MAP) 175/109 (131) 141/91 (108) Pulse Ox 97 97 O2 Delivery Room Air Room Air 07/27/18 07/27/18 07/27/18 07/27/18 10:30 10:35 10:47 10:47 Pulse 68 77 B/P (MAP) 131/84 (100) Pulse Ox 98 84 O2 Delivery Room Air O2 Flow Rate 2.0 07/27/18 07/27/18 11:00 11:05 Pulse 66 B/P (MAP) 121/67 (85) Pulse Ox 98 O2 Delivery Nasal Cannula O2 Flow Rate 2 Physical Exam General Appearance: The patient is alert, has no immediate need for airway protection and no signs of toxicity. Mild distress secondary to pain Eyes: Pupils equal and round no pallor or injection. ENT, Mouth: Mucous membranes are moist. Respiratory: There are no retractions, lungs are clear to auscultation. + cough Cardiovascular: Regular rate and rhythm. Gastrointestinal: Abdomen is soft and non tender, no masses, bowel sounds normal. Neurological: No focal neuro findings Skin: + erythema of b/l medial feet Musculoskeletal: + b/l tenderness on palpation of medial feet > on right MTP DIFFERENTIAL DIAGNOSIS: After history and physical exam differential diagnosis was considered for cellulitis, erysipelas, gout exacerbation, trauma, upper respiratory infection Medical Decision Making Data Points Result Diagram: 07/27/18 1033 07/27/18 1033 Laboratory Hematology Test 07/27/18 10:33 Red Blood Count 4.90 M/uL (4.00-5.60) Mean Corpuscular Volume 88.7 fL (80.0-96.0) Mean Corpuscular Hemoglobin 28.9 pg (26.0-33.0) Mean Corpuscular Hemoglobin Concent 32.6 g/dL (32.0-36.0) Red Cell Distribution Width 12.5 % (11.5-14.5) Mean Platelet Volume 7.2 fL (7.2-11.1) Neutrophils (%) (Auto) 61.7 % (39.4-72.5) Lymphocytes (%) (Auto) 24.5 % (17.6-49.6) Monocytes (%) (Auto) 9.4 % (4.1-12.4) Eosinophils (%) (Auto) 3.5 % (0.4-6.7) Basophils (%) (Auto) 0.9 % (0.3-1.4) Nucleated RBC Relative Count (auto) 0.0 /100WBC Neutrophils # (Auto) 4.4 K/uL (2.0-7.4) Lymphocytes # (Auto) 1.8 K/uL (1.3-3.6) Monocytes # (Auto) 0.7 K/uL (0.3-1.0) Eosinophils # (Auto) 0.2 K/uL (0.0-0.5) Basophils # (Auto) 0.1 K/uL (0.0-0.1) Nucleated RBC Absolute Count (auto) 0.00 K/uL Erythrocyte Sedimentation Rate 58 mm/HOUR (0-20) Sodium Level 137 mmol/L (137-145) Potassium Level 4.3 mmol/L (3.5-5.0) Chloride Level 105 mmol/L (98-107) Carbon Dioxide Level 22 mmol/L (22-30) Blood Urea Nitrogen 15 mg/dl (9-21) Creatinine 1.30 mg/dl (0.66-1.25) Glomerular Filtration Rate Calc 54.4 Random Glucose 76 mg/dl (75-110) Lactate 1.6 mmol/L (0.7-2.1) Calcium Level 9.4 mg/dl (8.4-10.2) Total Bilirubin 0.3 mg/dl (0.2-1.3) Aspartate Amino Transf (AST/SGOT) 26 U/L (0-35) Alanine Aminotransferase (ALT/SGPT) 30 U/L (0-56) Alkaline Phosphatase 82 U/L (0-126) C-Reactive Protein 2.4 mg/dl (<1.0) Total Protein 7.9 g/dl (6.3-8.2) Albumin 3.9 g/dl (3.5-5.0) Chemistry Test 07/27/18 10:33 White Blood Count 7.2 k/uL (4.5-11.0) Red Blood Count 4.90 M/uL (4.00-5.60) Hemoglobin 14.2 g/dL (14.0-18.0) Hematocrit 43.5 % (42.0-52.0) Mean Corpuscular Volume 88.7 fL (80.0-96.0) Mean Corpuscular Hemoglobin 28.9 pg (26.0-33.0) Mean Corpuscular Hemoglobin Concent 32.6 g/dL (32.0-36.0) Red Cell Distribution Width 12.5 % (11.5-14.5) Platelet Count 377 K/uL (150-450) Mean Platelet Volume 7.2 fL (7.2-11.1) Neutrophils (%) (Auto) 61.7 % (39.4-72.5) Lymphocytes (%) (Auto) 24.5 % (17.6-49.6) Monocytes (%) (Auto) 9.4 % (4.1-12.4) Eosinophils (%) (Auto) 3.5 % (0.4-6.7) Basophils (%) (Auto) 0.9 % (0.3-1.4) Nucleated RBC Relative Count (auto) 0.0 /100WBC Neutrophils # (Auto) 4.4 K/uL (2.0-7.4) Lymphocytes # (Auto) 1.8 K/uL (1.3-3.6) Monocytes # (Auto) 0.7 K/uL (0.3-1.0) Eosinophils # (Auto) 0.2 K/uL (0.0-0.5) Basophils # (Auto) 0.1 K/uL (0.0-0.1) Nucleated RBC Absolute Count (auto) 0.00 K/uL Erythrocyte Sedimentation Rate 58 mm/HOUR (0-20) Glomerular Filtration Rate Calc 54.4 Lactate 1.6 mmol/L (0.7-2.1) Calcium Level 9.4 mg/dl (8.4-10.2) Total Bilirubin 0.3 mg/dl (0.2-1.3) Aspartate Amino Transf (AST/SGOT) 26 U/L (0-35) Alanine Aminotransferase (ALT/SGPT) 30 U/L (0-56) Alkaline Phosphatase 82 U/L (0-126) C-Reactive Protein 2.4 mg/dl (<1.0) Total Protein 7.9 g/dl (6.3-8.2) Albumin 3.9 g/dl (3.5-5.0) EKG/Imaging Imaging Location: [facility] [place] Patient: Scar Alexandra : 1945 Visit/Account:[id number] Date of Sevice: 07/27/2018 Exam type: CHEST SINGLE AP History: Fever and cough Comparison: November 28, 2012 Findings: there is mild elevation of the right hemidiaphragm that appears similar to the prior study. Cardiac silhouette is mildly enlarged. There is no evidence of acute appearing infiltrates, pleural effusions or pulmonary edema. Hiatal hernia projects in the retrocardiac space. . IMPRESSION: 1. Mild cardiomegaly No evidence of acute pulmonary consolidation Hiatal hernia ED Course/Re-evaluation ED Course Patient is a 73-year-old male here with complaints of bilateral foot pain, erythema of the medial aspect of the foot in the setting of recent exacerbation of gout, cellulitis for which she was hospitalized. Patient reports being compliant with his clindamycin, colchicine, allopurinol. Patient reports having increasing pain and discomfort of his feet especially on ambulation over the past 24-48 hours. Patient was afebrile at time of evaluation, hemodynamically stable. Patient also reported having persistent cough over the past week. Chest x-ray was completed, labs including urinalysis were collected. Patient was given IV dose of ceftriaxone, fluids for antimicrobial coverage and rehydration. Patient's clinical presentation is most consistent with acute gout flare with overlying gouty arthritis likely not bacterial in nature. Patient was given ceftriaxone for antimicrobial coverage in case there is remaining bacterial cellulitis present but patient likely had incomplete resolution of gout with colchicine treatment. Patient was advised to discontinue colchicine and he was placed on prednisone 40 mg 7 day course, 1st dose given in the emergency department. White blood count was found be normal, lactate was normal as well and inflammatory markers were elevated. Return precautions provided. Patient was advised to continue clindamycin until completed. Patient was also advised to continue allopurinol. Patient was stable at time of discharge. Decision to Disposition Date: Jul 27, 2018 Decision to Disposition Time: 11:38 Depart Departure Latest Vital Signs Vital Signs Date Time Temp Pulse Resp B/P (MAP) Pulse Ox O2 Delivery O2 Flow Rate FiO2 07/27/18 11:05 66 98 Nasal Cannula 2 07/27/18 11:00 121/67 (85) 07/27/18 09:39 98.2 18 Impression: Primary Impression: Acute gout Condition: Improved Disposition: HOME OR SELF-CARE New Scripts Tramadol Hcl (TRAMADOL HCL) 50 Mg Tablet 50 MG PO Q6H PRN for PAIN, #12 TAB 0 Refills Prov: CLAY LOPEZ DO 07/27/18 Prednisone (PREDNISONE) 20 Mg Tablet 40 MG PO QDAY for 6 Days, #12 TAB Prov: CLAY LOPEZ DO 07/27/18 Patient Instructions: Gout (ED) Additional Instructions: Please drink plenty of fluids to maintain hydration status. Please discontinue colchicine and please take 40 mg of prednisone for the next 6 days to complete a 7 day course. You may continue taking your allopurinol and clindamycin as prescribed. Please return promptly if you develop worsening rash, fevers, increased pain, signs of dehydration. Please follow-up with your primary care provider as scheduled. You may take 1 tramadol every 6-8 hours as needed for pain control, please do not take with alcohol and please do not drive or operate heavy machinery while on this medication. Please avoid taking NSAIDs such as ibuprofen, naproxen as these can damage your kidney function. CLAY LOPEZ DO Jul 27, 2018 09:36
[2018-07-27] MEDS ORDERED: NS(*) 0.9% 1000 ML BAG 1,000 ML IV ONE (09:48)
[2018-07-27] MEDS ORDERED: cefTRIAXone 1 GM VIAL IVP ONE (09:50)
[2018-07-27] MEDS ORDERED: KETOROLAC 30 MG/ML VIAL IVP ONE (09:50)
[2018-07-27 10:41] LABS: PLATELET COUNT, AUTOMATED 377 K/uL (150-450)
--- NOTE | 2018-07-27 11:06 | RADIOLOGY IMAGING REPORT ---
FACILITY: [facility] PATIENT NAME: Scar Alexandra : 1945 MR: [id number] V: [id number] EXAM DATE: ORDERING PHYSICIAN: CLAY LOPEZ TECHNOLOGIST: Location: [facility] [place] Patient: Scar Alexandra : 1945 Visit/Account:[id number] Date of Sevice: 07/27/2018 Exam type: CHEST SINGLE AP History: Fever and cough Comparison: November 28, 2012 Findings: there is mild elevation of the right hemidiaphragm that appears similar to the prior study. Cardiac silhouette is mildly enlarged. There is no evidence of acute appearing infiltrates, pleural effusion s or pulmonary edema. Hiatal hernia projects in the retrocardiac space. . IMPRESSION: 1. Mild cardiomegaly No evidence of acute pulmonary consolidation Hiatal hernia Report Dictated By: Anju Patel MD at 07/27/2018 11:00 AM Report E-Signed By: Anju Patel MD at 07/27/2018 11:01 AM WSN:[email or web address]
[2018-07-27] MEDS ORDERED: predniSONE 20 MG TAB PO ONE (11:20)
[2018-07-27 11:30] VITALS: BP 158/107
[2018-07-27] MEDS ORDERED: PRED20TA6 PO (11:40)
[2018-07-27] MEDS ORDERED: TRAM-420 PO (11:40)
== END 2018-07-27 12:01 | disposition home or self-care (01) ==
LOC: ER 09:37
DX: M10.9 Gout, unspecified (principal); R05 Cough
CPT/HCPCS: 36415; 71045; 81001; 83605; 85025; 85651; 86140; 96361; 96374; 96375; 99284; J0696; J1885; J7030; J7512; 82040; 82247; 82310; 82374; 82435; 82565; 82947; 84075; 84132; 84155; 84295; 84450; 84460; 84520

== ENCOUNTER → 2018-08-11 | Outpatient (CLI) | payer MEDICARE ==
[2018-01-31 11:17] VITALS: BMI 29.1
[~2018-08-11] MED LIST changes: +PRED-420 PO; +PRED20TA6 PO; +TRAM-420 PO
[2018-08-11 10:08] LABS: PLATELET COUNT, AUTOMATED 278 K/uL (150-450)
== END ==
LOC: LAB 09:19
PROVIDERS: ATTEND Internal Medicine
DX: M10.9 Gout, unspecified (principal); L03.119 Cellulitis of unspecified part of limb; Z90.5 Acquired absence of kidney; E78.00 Pure hypercholesterolemia, unspecified; Z86.73 Personal history of transient ischemic attack (TIA), and cerebral infarction without residual deficits
CPT/HCPCS: 36415; 81001; 84443; 84550; 85025; 85651; 86140; G0103; 82040; 82247; 82310; 82374; 82435; 82465; 82565; 82947; 83718; 84075; 84132; 84153; 84155; 84295; 84450; 84460; 84478; 84520

== ENCOUNTER → 2018-08-11 | Outpatient (CLI) | payer MEDICARE ==
[2018-01-31 11:17] VITALS: BMI 29.1
--- NOTE | 2018-08-11 15:47 | RADIOLOGY IMAGING REPORT ---
FACILITY: [facility] PATIENT NAME: Scar Alexandra : 1945 MR: [id number] V: [id number] EXAM DATE: ORDERING PHYSICIAN: JEANNINE BURNHAM TECHNOLOGIST: Location: [facility] [place] Patient: Scar Alexandra : 1945 Visit/Account:[id number] Date of Sevice: 08/11/2018 Exam type: RETROGRADE URETHROGRAM History: Bladder outlet obstruction Comparison: None. Findings: 165 C-arm spot views of the lower pelvis performed during retrograde urethrogram were submitted. The re is an approximate 2.2 cm long filling defect in the mid anterior urethra. The fluoroscopy dose ar ea product was 43.74 micro-Kwok per meter squared IMPRESSION: As above 1. Report Dictated By: Anju Patel MD at 08/11/2018 3:38 PM Report E-Signed By: Anju Patel MD at 08/11/2018 3:41 PM WSN:[email or web address]
== END ==
LOC: RAD 00:35
PROVIDERS: ATTEND Urology
DX: N32.0 Bladder-neck obstruction (principal)
CPT/HCPCS: 51610; 74450

== ENCOUNTER → 2018-08-18 | Outpatient (CLI) | payer MEDICARE ==
[2018-01-31 11:17] VITALS: BMI 29.1
== END ==
LOC: LAB 09:33
PROVIDERS: ATTEND Surgery
DX: C43.61 Malignant melanoma of right upper limb, including shoulder (principal)
CPT/HCPCS: 88305; 88344

== ENCOUNTER → 2018-09-04 | Outpatient (CLI) | payer MEDICARE ==
[2018-01-31 11:17] VITALS: BMI 29.1
[~2018-09-04] MED LIST changes: +ALLO-119 PO
[2018-09-04 09:29] LABS: PLATELET COUNT, AUTOMATED 365 K/uL (150-450)
== END ==
LOC: LAB 08:57
PROVIDERS: ATTEND Internal Medicine
DX: M10.9 Gout, unspecified (principal); Z90.5 Acquired absence of kidney
CPT/HCPCS: 36415; 82040; 82247; 82310; 82374; 82435; 82565; 82947; 84075; 84132; 84155; 84295; 84450; 84460; 84520; 84550; 85025; 85651; 86140; 86200; 86430

== ENCOUNTER → 2018-09-04 | Outpatient (CLI) | payer MEDICARE ==
[2018-01-31 11:17] VITALS: BMI 29.1
== END ==
LOC: LAB 09:11
PROVIDERS: ATTEND Urology
DX: R97.20 Elevated prostate specific antigen [PSA] (principal)
CPT/HCPCS: 84154

== ENCOUNTER 2018-09-11 01:55 | Day surgery (SDC) | payer MEDICARE ==
[2018-01-31 11:17] VITALS: Ht 170.2 cm; Wt 81.2 kg
[~2018-09-11] VITALS: Ht 170.2 cm; Wt 81.2 kg
[~2018-09-11 01:55] MED LIST changes: +LIDOCAINE/PRILOCAINE 5 GM TUBE TP ONE
[2018-09-11 08:41] VITALS: BP 143/81
[2018-09-11] MEDS ORDERED: LIDOCAINE/PRILOCAINE 5 GM TUBE TP ONE (10:20)
[2018-09-11] MEDS ORDERED: FAMOTIDINE 20 MG TAB PO ONE (11:00)
[2018-09-11] MEDS ORDERED: ceFAZolin(*) 2GM/D5W 50ML 50 ML IVPB ONE (11:00)
[2018-09-11] MEDS ORDERED: LIDOCAINE/SOD BICARB 8.4% SYR ID ONE (11:00)
[2018-09-11] MEDS ORDERED: MIDAZOLAM 2 MG/2 ML VIAL IVP PRN (11:00)
[2018-09-11] MEDS ORDERED: NORMOSOL R SOLN(*) 1000 ML BAG 1,000 ML IV PRN (11:00)
--- NOTE | 2018-09-11 13:47 | RADIOLOGY IMAGING REPORT ---
FACILITY: [facility] PATIENT NAME: Scar Alexandra : 1945 MR: [id number] V: [id number] EXAM DATE: ORDERING PHYSICIAN: BRIAN ESCOTO TECHNOLOGIST: Location: [facility] [place] Patient: Scar Alexandra : 1945 Visit/Account:[id number] Date of Sevice: 09/11/2018 Right shoulder radionuclide injection for sentinel node localization, and right shoulder nuclear lymp hangiogram. HISTORY: Right shoulder melanoma. The procedure and risks were explained to the patient who agreed to proceed. The skin was sterilely p repped and draped. A total of 561 uCi Tc 99m Lymphoseek was then injected into the breast at four spo ts along the edge of the areola. A sterile dressing was applied. The patient tolerated the procedure well without complications. Scintigraphic imaging was obtained of the right shoulder, upper chest, and neck. Intense activity is present at the injection site along the superior aspect of the right shoulder. No migration of radi onuclide into the axilla, neck, or chest is present at 42 minutes. IMPRESSION: Right shoulder radionuclide injection. No significant radionuclide migration is present at 42 minutes. This information was called to the dylon bell's surgeon. Report Dictated By: Wilmar Ridley MD at 09/11/2018 1:37 PM Report E-Signed By: Wilmar Ridley MD at 09/11/2018 1:42 PM WSN:[email or web address]
[2018-09-11] MEDS ORDERED: DEXAMETHASONE SOD PHOS 10MG/ML ONE (13:56)
[2018-09-11] MEDS ORDERED: PROPOFOL EMUL(*) 10MG/ML 20 ML 40 ML ONE (13:56)
[2018-09-11] MEDS ORDERED: ONDANSETRON 4 MG/2 ML VIAL ONE (13:56)
[2018-09-11] MEDS ORDERED: NEOMYCIN/POLYMYX/BACITR 30 GM TP ONE (13:57)
[2018-09-11] MEDS ORDERED: ROPIVACAINE 0.5% 20 ML VIAL ONE (13:57)
[2018-09-11] MEDS ORDERED: EPINEPHrine HCL 30 MG/30 ML ONE (13:57)
[2018-09-11] MEDS ORDERED: MINERAL OIL LIGHT 10 ML VIAL ONE (13:57)
[2018-09-11] MEDS ORDERED: fentaNYL CITR 100 MCG/2 ML AMP ONE (14:17)
[2018-09-11] MEDS ORDERED: DOCU-416 PO (15:40)
[2018-09-11] MEDS ORDERED: OXYC-854 PO (15:40)
--- NOTE | 2018-09-11 15:46 | Short(Outpt) Discharge Summary ---
Discharge Summary Reason for Hosp/Final Diag: (1) Melanoma Status: Chronic Hospital Course & Plan: Wide excision of melanoma with STSG form right thigh to right supraclavicular wound completed without problems. Departure Discharge to: Home, Self Care Discharge Instructions Home Meds Active Scripts Docusate Sodium (COLACE) 100 Mg Capsule, 1 CAP PO BID, #30 CAP 0 Refills TAKE WITH A FULL GLASS OF WATER Prov:BRIAN ESCOTO MD 09/11/18 Oxycodone Hcl/Acet 5/325 Mg (ENDOCET 5-325 TABLET) 1 Each Tablet, 1 TAB PO Q4H PRN for PAIN, #20 TAB 0 Refills Prov:BRIAN ESCOTO MD 09/11/18 Prednisone 10 Mg Tab (PREDNISONE 10 MG TAB) 10 Mg Tab.ds.pk, 10 MG PO DIRECTED, #30 TAB 2 tabs daily x 1 week 1 tabs daily x 1 week 0.5 tabs daily x 1 week Prov:DACIA GUZMAN MD 09/04/18 Allopurinol (ZYLOPRIM) 300 Mg Tablet, 300 MG PO QDAY, #30 TAB 6 Refills Prov:DACIA GUZMAN MD 09/04/18 Discontinued Scripts Allopurinol (ALLOPURINOL) 100 Mg Tablet, 200 MG PO QDAY, #60 TAB 3 Refills Prov:DACIA GUZMAN MD 07/31/18 Clindamycin Hcl (CLINDAMYCIN HCL) 300 Mg Capsule, 300 MG PO Q6H, #20 CAPSULE Prov:BRIAN COLIN DO 07/24/18 Follow up Referrals: General Surgery - 09/16/18 @ Surgery, General with BRIAN ESCOTO MD You have a follow up appointment scheduled with Dr. Escoto on 09/16/18, at 4:15pm. Diet: Regular Activity: As Tolerated Special Instructions: Leave all the dressings in place until your follow up appointment on 09/16/18, at which time I'll remove them. Please keep the dressings dry. You'll have to rely on sponge baths until cleared to bath. Problem Qualifiers (1) Melanoma: Melanoma location: torso excluding breast Qualified Codes: C43.59 - Malignant melanoma of other part of trunk BRIAN ESCOTO MD Sep 11, 2018 15:46
--- NOTE | 2018-09-11 15:56 | Post Operative Progress Note ---
Post Operative Progress Note Date: Sep 11, 2018 Time: 15:46 Surgeon: Dm Dictation number: [id number] Anesthesia: GETA by Dr. Kaufman Pre-Op Diagnosis: Right supraclavicular melanoma Post-Op Diagnosis: SANIYA Findings: None Procedure(s): WLE of right supraclavicular melanoma STSG from right thigh to right supraclavicular fossa Specimen Removed:(May be N/A): WLE melanoma Complications: None Fluids: See anesthesia record Estimated Blood Loss: Minimal Date OP Note Dictated: Sep 11, 2018 Time OP Note Dictated: 15:48 BRIAN ESCOTO MD Sep 11, 2018 15:56
[2018-09-11 16:15] VITALS: BP 134/78
[2018-09-11 16:30] VITALS: BP 134/86
[2018-09-11 16:45] VITALS: BP 144/93
[2018-09-11 17:00] VITALS: BP 139/78
[2018-09-11 17:03] VITALS: BP 148/93
--- NOTE | 2018-09-11 17:24 | OPERATIVE REPORT 1 ---
EVENT DATE: September 11, 2018 SURGEON: Donte Chaidez MD ANESTHESIOLOGIST: Scotty Kaufman MD ANESTHESIA: General endotracheal anesthesia. PREOPERATIVE DIAGNOSIS Right supraclavicular melanoma. POSTOPERATIVE DIAGNOSIS Right supraclavicular melanoma. PROCEDURES PERFORMED 1. Wide local excision of right supraclavicular melanoma. 2. Split-thickness skin graft from right thigh to right supraclavicular fossa. COMPLICATIONS None. CONDITION Stable. BLOOD LOSS Minimal. INDICATIONS This is a 73-year-old gentleman whom I removed a very suspicious pigmented skin lesion from his right supraclavicular fossa several weeks ago, and the pathology has revealed it to be a melanoma that is 0.8 mm thick. I have consented him for wide local excision of the melanoma with split-thickness skin graft from his thigh to his supraclavicular fossa and sentinel lymph node excision. He did go to [facility] this morning where lymphoscintigraphy was attempted, but no sentinel lymph nodes were identified. As per my preoperative plan with him, if no lymph nodes were identified, I was not going to pursue any sort of lymphadenectomy since the location of this melanoma could lead to lymph node metastases into either his cervical lymph nodes or his axillary lymph nodes, and the total thickness of the melanoma was 0.8 mm, which is where without other high-grade features, sentinel lymph node excision is not absolutely indicated. DESCRIPTION OF PROCEDURE Patient was brought to the operating room and placed upon the operating table. General endotracheal anesthesia was administered, and his right supraclavicular fossa and right thigh were prepped and draped in a sterile fashion. A timeout was completed, and I marked the skin around the previous surgical scar with 2 cm margins on all sides. I then anesthetized the skin with 0.5% ropivacaine plain. I then made a skin incision which was oval in shape where the margins were going to be 2 cm from the previous surgical scar since the melanoma had been completely excised with 1 mm negative margins on the previous excision. I dissected through the dermis and subcutaneous fat and then undermined this oval bit of tissue full thickness in the subcutaneous plane. I then marked it with a short stitch superiorly and a long stitch laterally and passed it off the field. I made this wound hemostatic. I then measured the wound, and it was 7 cm long x 4 cm wide. I then placed a moist Ray-Rafy in this wound and then moved down to the thigh and applied mineral oil to the thigh. I then obtained the dermatome and obtained a 7 cm x 4 cm piece of split-thickness skin and then applied epinephrine-laden gauze on the donor site. I then went to the fenestrater, and using a 3:1 plate, fenestrated the skin graft. I then applied it dermis side down to the wound in the right supraclavicular fossa and stapled it around the edges and then sutured it to the substrate with interrupted 3-0 chromic sutures. I then applied cotton balls with antibiotic ointment and a Kerlix and placed this in the wound and then tacked it down with 0 silk sutures through the justina to buttress the graft in place and allow it to adhere to the underlying substrate. I then covered the donor site, which was hemostatic at this point, with Xeroform gauze which was cut to the exact size of the donor site. I then placed a dry 4 x 4 gauze over the buttress and over the donor site and then wrapped the leg in Kerlix and an Joey wrap and secured the gauze with Medipore tape on his right supraclavicular fossa. He was then awakened, extubated in the operating room, and transported to the recovery room in stable condition having tolerated the procedure without any apparent problems. SARBJIT
--- NOTE | 2018-09-11 17:25 | NUR ---
RN BEDSIDE TO CHECK ON PT. REPORTS HE IS BECOMING SORE, BUT DOES NOT WANT TO TAKE NARCOTICS. OFFERED TO CALL ANESTHESIA FOR PO TYLENOL. PT. WOULD LIKE TO TRY TYLENOL FOR PAIN RELIEF. INFORMED PT. IMPORTANT TO AVOID NSAIDs UNTIL FOLLOW UP WITH DR. ESCOTO AND NOT TO EXCEED 4G OF TYLENOL WITHIN A 24 HOUR PERIOD. PT. REPORTS UNDERSTANDING.
--- NOTE | 2018-09-11 17:27 | NUR ---
1715- SBAR FROM [facility]. FRIEND UPDATED IN WAITING AREA.
--- NOTE | 2018-09-11 17:30 | NUR ---
VO DR. GONZALEZ FOR 1G OF PO APAP.
[2018-09-11] MEDS ORDERED: ACETAMINOPHEN 500 MG TAB ONE (17:36)
--- NOTE | 2018-09-11 17:46 | NUR ---
PT. ABLE TO DRESS WITHOUT ISSUES.
--- NOTE | 2018-09-11 17:50 | NUR ---
DISCHARGE INSTRUCTIONS REVIEWED. ONCE AGAIN INFORMED PT. NOT TO EXCEED 4,000MG OF TYLENOL/ACETAMINOPHEN IN A 24 HOUR PERIOD. PT. STATED UNDERSTANDING. WAITING ON PT.'S RIDE.
--- NOTE | 2018-09-11 18:00 | NUR ---
PT. PLACED IN RECLINER. FRIEND BROUGHT TO BEDSIDE. WATER REFILLED. NO CONCERNS. GIVEN ICE PACKS FOR PAIN.
--- NOTE | 2018-09-11 18:10 | NUR ---
RN INTO ROOM TO CHECK ON PT. NO CONCERNS. PAIN IMPROVING.
--- NOTE | 2018-09-11 18:20 | NUR ---
RN INTO ROOM TO CHECK ON PT. NO CONCERNS. PAIN IMPROVING.
--- NOTE | 2018-09-11 19:00 | NUR ---
WAITING FOR PT.'S RIDE. NO CONCERNS. DENIES PAIN.
--- NOTE | 2018-09-11 19:10 | NUR ---
PT. PLACED IN WHEELCHAIR.
== END 2018-09-11 16:15 | disposition home or self-care (01) ==
LOC: OR 01:55
PROVIDERS: ATTEND Surgery
DX: C76.0 Malignant neoplasm of head, face and neck (principal)
CPT/HCPCS: 15100; 21552; 78195; 88305; A9270; A9520; J0171; J1100; J2405; J2704; J2795; J3010; J0690

== ENCOUNTER → 2018-11-17 | Outpatient (CLI) | payer MEDICARE ==
[2018-01-31 11:17] VITALS: BMI 29.1
[~2018-11-17] MED LIST changes: +DOCU-416 PO; -LIDOCAINE/PRILOCAINE 5 GM TUBE TP ONE; +OXYC-854 PO
[2018-11-17 09:00] LABS: PLATELET COUNT, AUTOMATED 285 K/uL (150-450)
[2018-11-17 09:54] LABS: LDL CHOLESTEROL 96 mg/dl
== END ==
LOC: LAB 08:37
PROVIDERS: ATTEND Internal Medicine
DX: E78.00 Pure hypercholesterolemia, unspecified (principal); M10.9 Gout, unspecified; C43.9 Malignant melanoma of skin, unspecified
CPT/HCPCS: 36415; 82040; 82247; 82310; 82374; 82435; 82465; 82565; 82947; 83718; 84075; 84132; 84155; 84295; 84450; 84460; 84478; 84520; 84550; 85025; 85651; 86038; 86140; 86200; 86430

== ENCOUNTER 2018-11-19 09:15 | Outpatient (RCR) | payer MEDICARE ==
[2018-01-31 11:17] VITALS: Ht 165.1 cm; Wt 84.5 kg
[~2018-11-19] VITALS: Ht 165.1 cm; Wt 84.5 kg
[2018-11-19 09:24] VITALS: BP 128/75
--- NOTE | 2018-11-19 11:39 | ONCOLOGY CONSULTATION ---
EVENT DATE: November 19, 2018 REFERRING PHYSICIAN Donte Chaidez MD PRIMARY CARE PHYSICIAN Murali Urbano MD REASON FOR CONSULTATION Evaluation and management of malignant melanoma of the skin of the right supraclavicular area. ONCOLOGY HISTORY Patient is a 73-year old male who presented with a pigmented lesion on the skin of the right supraclavicular area. Patient ended by having right shoulder excisional biopsy done on August 18, 2018, and pathology came back positive for superficial spreading malignant melanoma with Breslow thickness 0.8 mm, extending to within 1 mm of the lateral surgical margin. This was followed by right supraclavicular wide excision and split-thickness skin graft done on September 11, 2018, and pathology did not show any residual malignancy but evidence of scar and chronic inflammation with fibrosis. The tumor was staged as stage 1B (pT1b pNX cM0) based on Breslow thickness of 0.8 mm. PAST MEDICAL HISTORY 1. Migraine headache. 2. Stroke 2009. 3. Benign prostatic hypertrophy. 4. Gout. 5. Osteoarthritis. 6. Prostate cancer. PAST SURGICAL HISTORY 1. Left nephrectomy after nephritis at age of 12. 2. TURP in April 2011. FAMILY HISTORY Mother had breast cancer. Sister had cervical cancer. SOCIAL HISTORY Patient is for over 35 years. He has four children. 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 Patient is a never smoker, never alcoholic and never used illicit drugs. CURRENT MEDICATIONS Allopurinol 300 mg daily. ALLERGIES Levofloxacin, causing joint pains. Hyoscyamine and Procaine, which causes hives. REVIEW OF SYSTEMS CONSTITUTIONAL: Patient has chills. HEENT: Ears: He has occasional epistaxis. Nose: No nasal discharge or epistaxis. Throat: No sore throat or mouth ulcers. Eyes: No diplopia or visual changes. RESPIRATORY: He has shortness of breath related to age. CARDIOVASCULAR: No chest pain, orthopnea, or paroxysmal nocturnal dyspnea (PND). No edema. No palpitations. GASTROINTESTINAL: No nausea or vomiting. No diarrhea or constipation. No change in bowel movements. No heartburn or swallowing difficulties. No abdominal pain. No jaundice. No hematemesis, melena or rectal bleeding. GENITOURINARY: He has some urethral problems in the past. He has only one kidney. MUSCULOSKELETAL: He has pain in his knees. NEUROLOGICAL: He has numbness occasionally in his right hand. HEMATOLOGIC/LYMPHATIC: He bruises easily. He is weak, tired and fatigued. SKIN: No skin rash or lumps. PSYCHIATRIC: No anxiety or depression. PHYSICAL EXAMINATION GENERAL: Looks stable. Well-developed, well-nourished, and in no acute distress. VITAL SIGNS: Blood pressure 128/75, pulse 73 per minute, respirations 16 per minute, temperature 97.7, pulse ox 96% on room air. HEENT: Head: Atraumatic. No sinus tenderness to palpation. Eyes: No icterus or conjunctivitis. Mouth and Throat: No oral thrush or mucositis. NECK: Supple. No cervical or supraclavicular lymphadenopathy. LUNGS: Clear to auscultation and percussion bilaterally. HEART: Regular rate and rhythm. No gallops, murmurs, clicks or rubs. ABDOMEN: Soft and lax. No tenderness. No hepatosplenomegaly. No masses. EXTREMITIES: No cyanosis, clubbing or edema. LYMPHATICS: No peripheral lymphadenopathy. NEUROLOGICAL: Conscious, alert and oriented x3. No focal motor or sensory deficits. PSYCHIATRIC: Mood and affect appear normal. SKIN: No skin rash, bruise or purpuric eruption. ASSESSMENT Stage IB (pT1b pNX cM0) malignant melanoma of the skin of the right supraclavicular area, status post right shoulder excisional biopsy done on August 18, 2018, followed by right supraclavicular skin wide excision done on September 11, 2018, which did not show any residual malignancy. The Breslow thickness was 0.8 mm, which put him as pTb and that is why his stage if stage IB. I reviewed the NCCN guidelines and there is no recommendation of staging workup and there is no also imaging studies done regularly in followup unless the patient is symptomatic and then we can image based on his symptoms or complaints. I am planning to see him in six months as per NCCN guidelines recommendation with CBC, chem panel and LDH. PLAN 1. Continue followup. 2. Patient to return in six months with CBC, chem panel and LDH. 3. Patient to contact us for any new concerns or complaints. SARBJIT
== END 2018-12-07 14:44 | disposition home or self-care (01) ==
LOC: ONC 09:15
PROVIDERS: ATTEND Internal Medicine Hematology
DX: C43.59 Malignant melanoma of other part of trunk (principal); R53.1 Weakness; R53.83 Other fatigue
CPT/HCPCS: 99202

== ENCOUNTER 2019-01-18 08:31 | Emergency (ER) | payer MEDICARE ==
[2018-01-31 11:17] VITALS: Wt 83.0 kg
--- NOTE | 2019-01-18 08:47 | ER Report ---
History and Physical Time Seen By MD: 08:42 Hx. of Stated Complaint: PATIENT REPORTS LEFT KNEE PAIN THAT STARTED ON FRIDAY HPI/ROS CHIEF COMPLAINT: Left knee pain HISTORY OF PRESENT ILLNESS: Patient is a 73-year-old male history of gout arthritis comes emergency Department today with a complaint of left knee pain. Patient states his pain started 2-3 days prior to presentation is now unable to barely ambulate and weight-bear on the knee. He has pain with flexion of the knee even past 10. Patient says the knee feels warm to him. Patient has no history of trauma or falls. Patient has a history of gout does not perfect his knees mostly it affects his feet and toes and his wrist. Patient denies any chest pain shortness of breath nausea vomiting diarrhea fever chills or additional complaints noted REVIEW OF SYSTEMS: Respiratory: No cough, no dyspnea. Cardiovascular: No chest pain, no palpitations. Gastrointestinal: No vomiting, no abdominal pain. Musculoskeletal: Left knee pain Remainder of the 14 system rev: Yes Allergies: Coded Allergies: levofloxacin (Unverified Allergy, Severe, JOINT PAINS, 07/27/18) hyoscyamine (Verified Allergy, Intermediate, 07/27/18) procaine (Verified Allergy, Intermediate, 07/27/18) Home Meds Active Scripts Allopurinol (ZYLOPRIM) 300 Mg Tablet, 300 MG PO QDAY, #30 TAB 6 Refills Prov:DACIA GUZMAN MD 09/04/18 Reviewed Nurses Notes: Yes Old Medical Records Reviewed: Yes Hx Smoking: No Smoking Status: Never Smoker Exposure to Second Hand Smoke?: No Hx Substance Use Disorder: No Hx Alcohol Use: No Constitutional Vital Sign - Last 24 Hours 01/18/19 01/18/19 01/18/19 01/18/19 08:35 08:36 09:00 09:01 Temp 97.7 Pulse 80 72 Resp 24 B/P (MAP) 128/71 128/71 (90) 121/67 (85) Pulse Ox 94 89 O2 Delivery Room Air 01/18/19 01/18/19 01/18/19 01/18/19 09:30 09:31 10:00 10:01 Pulse 71 68 B/P (MAP) 139/77 (97) 134/77 (96) Pulse Ox 92 93 Physical Exam General appearance: Alert no distress. Respiratory: Chest is non tender, lungs are clear to auscultation. Cardiac: Regular rate and rhythm [ ] Left knee examination patient's left knee demonstrates a red warm erythematous need some mild edema around the area unable to flex the knee past 10 and able to fully extend the knee weightbearing with significant discomfort. Neurovascu larly intact DIFFERENTIAL DIAGNOSIS: After history and physical exam differential diagnosis was considered for gout arthritis flareup of the knee septic knee Medical Decision Making Data Points Result Diagram: 01/18/19 0850 01/18/19 0850 Laboratory Hematology Test 01/18/19 08:50 White Blood Count 10.5 k/uL (4.5-11.0) Red Blood Count 4.93 M/uL (4.00-5.60) Hemoglobin 14.8 g/dL (14.0-18.0) Hematocrit 42.9 % (42.0-52.0) Mean Corpuscular Volume 87.1 fL (80.0-96.0) Mean Corpuscular Hemoglobin 29.9 pg (26.0-33.0) Mean Corpuscular Hemoglobin Concent 34.4 g/dL (32.0-36.0) Red Cell Distribution Width 14.7 % (11.5-14.5) H Platelet Count 229 K/uL (150-450) Mean Platelet Volume 8.0 fL (7.2-11.1) Neutrophils (%) (Auto) 68.0 % (39.4-72.5) Lymphocytes (%) (Auto) 18.4 % (17.6-49.6) Monocytes (%) (Auto) 9.7 % (4.1-12.4) Eosinophils (%) (Auto) 3.5 % (0.4-6.7) Basophils (%) (Auto) 0.4 % (0.3-1.4) Nucleated RBC Relative Count (auto) 0.0 /100WBC Neutrophils # (Auto) 7.2 K/uL (2.0-7.4) Lymphocytes # (Auto) 1.9 K/uL (1.3-3.6) Monocytes # (Auto) 1.0 K/uL (0.3-1.0) Eosinophils # (Auto) 0.4 K/uL (0.0-0.5) Basophils # (Auto) 0.0 K/uL (0.0-0.1) Nucleated RBC Absolute Count (auto) 0.00 K/uL Chemistry Test 01/18/19 08:50 Sodium Level 141 mmol/L (137-145) Potassium Level 3.9 mmol/L (3.5-5.0) Chloride Level 108 mmol/L (98-107) Carbon Dioxide Level 22 mmol/L (22-30) Blood Urea Nitrogen 20 mg/dl (9-21) Creatinine 1.30 mg/dl (0.66-1.25) Glomerular Filtration Rate Calc 54.4 Random Glucose 89 mg/dl (75-110) Uric Acid 5.8 mg/dl (3.5-8.5) Calcium Level 9.3 mg/dl (8.4-10.2) Total Bilirubin 1.1 mg/dl (0.2-1.3) Aspartate Amino Transf (AST/SGOT) 31 U/L (0-35) Alanine Aminotransferase (ALT/SGPT) 33 U/L (0-56) Alkaline Phosphatase 84 U/L (0-126) C-Reactive Protein 1.5 mg/dl (<1.0) Total Protein 7.4 g/dl (6.3-8.2) Albumin 4.0 g/dl (3.5-5.0) Microbiology Microbiology Date/Time Source Procedure Growth Status 01/18/19 08:50 Blood Blood Culture - Preliminary NO GROWTH SO FAR, SET LATE. REINCUBATED Resulted 01/18/19 09:47 Knee Aspirate Gram Stain - Final Resulted 01/18/19 09:47 Knee Aspirate Miscellaneous Culture Pending Resulted 01/18/19 09:47 Knee Aspirate Anaerobic Culture Pending Resulted ED Course/Re-evaluation ED Course ED clinical course and 3-year-old male with left knee discomfort patient has consistency with probable cytolytic changes however Was able to be performed Arthrocentesis of the left knee Area was cleaned away from the cellulitic area medial approach Betadine was placed sterile dressing aseptic technique proximal mid 13 mL of blood-tinged fluid was removed this was sent culture did demonstrate rare RBC fraction rare WBCs RBCs noted Sterile dressing was applied patient tolerated well Spoke with orthopedics started him on Keflex rapid mobilize it and have him follow-up with orthopedic starting him on antibiotics Decision to Disposition Date: Jan 18, 2019 Decision to Disposition Time: 11:20 Depart Departure Latest Vital Signs Vital Signs Date Time Temp Pulse Resp B/P (MAP) Pulse Ox O2 Delivery O2 Flow Rate FiO2 01/18/19 10:01 68 93 01/18/19 10:00 134/77 (96) 01/18/19 08:35 97.7 24 Room Air Impression: Primary Impression: Knee pain Additional Impression: Knee pain, acute Condition: Improved Disposition: HOME OR SELF-CARE Referrals: DACIA GUZMAN MD (PCP) MODESTO SEGUNDO MD 5 Days New Scripts Cephalexin 500 Mg Tab (KEFLEX 500 MG TAB) 500 Mg Tablet 500 MG PO Q6H, #28 TAB 0 Refills TAKE ONE TABLET BY MOUTH EVERY SIX HOURS Prov: PATRIZIA STRATTON MD 01/18/19 Patient Instructions: Cellulitis (DC) Problem Qualifiers PATRIZIA STRATTON MD Jan 18, 2019 08:47
[2019-01-18 09:02] LABS: PLATELET COUNT, AUTOMATED 229 K/uL (150-450)
--- NOTE | 2019-01-18 09:20 | RADIOLOGY IMAGING REPORT ---
FACILITY: [facility] [place] PATIENT NAME: Scar Alexandra : 1945 MR: [id number] V: [id number] EXAM DATE: ORDERING PHYSICIAN: PATRIZIA STRATTON TECHNOLOGIST: Location: [facility] [place] Patient: Scar Alexandra : 1945 Visit/Account:[id number] Date of Sevice: 01/18/2019 Exam type: KNEE 3 VIEW LEFT History: Knee pain Comparison: 07/26/2013. Findings: There are changes of tricompartmental osteoarthritis. Loss of joint space is noted in the medial and patellofemoral compartments with significant osteophytosis. No acute fracture. Tiny knee effusion is noted. There is some soft tissue swelling over the patellar tendon. IMPRESSION: 1. Tricompartmental osteoarthritis of left knee but no acute fracture. Report Dictated By: Zacekry Reardon MD at 01/18/2019 9:10 AM Report E-Signed By: Zackery Reardon MD at 01/18/2019 9:13 AM WSN:[email or web address]
[2019-01-18 11:00] VITALS: BP 133/77
[2019-01-18] MEDS ORDERED: CEPH500T7 PO (11:24)
== END 2019-01-18 11:35 | disposition home or self-care (01) ==
LOC: ER 08:50
DX: M25.562 Pain in left knee (principal)
CPT/HCPCS: 82040; 82247; 82310; 82374; 82435; 82565; 82947; 84075; 84132; 84155; 84295; 84450; 84460; 84520; 84550; 85025; 86140; 86141; 87040; 87071; 87073; 87205; 99283